=== PATIENT | female | born 1955 | race Caucasian/White ===

== ENCOUNTER → 2016-12-12 | Outpatient (CLI) | payer OTHER ==
[~2016-12-12] MED LIST: ACCL20 PO; ALBU1AER9 INH; ASTN; ATV5 PO; CLR10 PO; DESO0.259 TOP; FLUT0.0529 NAE; FLUT110A INH; FLX10 PO; KETO0.0216 OP; PRLSR20 PO; PSEU60TA80 PO; PXL20 PO; SENN-104 PO; SIMV-150 PO
== END | disposition home or self-care (01) ==
LOC: C.PAPS 10:09
PROVIDERS: ATTEND Obstetrics & Gynecology
DX: Z01.419 Encounter for gynecological examination (general) (routine) without abnormal findings (principal)

== ENCOUNTER → 2017-10-16 | Outpatient (CLI) | payer OTHER ==
--- NOTE | 2017-10-16 15:12 | MAMMOGRAPHY REPORT ---
BILATERAL DIGITAL SCREENING MAMMOGRAM WITH CAD: 10/16/2017 CLINICAL HISTORY: Routine screening. Patient has no complaints. TECHNIQUE: Bilateral CC, MLO and repeat left MLO views were obtained. Current study was also evaluat ed with a Computer Aided Detection (CAD) system. COMPARISON: Comparison is made to exams dated: 12/12/2014 mammogram, 12/06/2013 mammogram, 11/30/2012 m ammogram, 11/18/2011 mammogram, 11/17/2010 mammogram, and 11/16/2009 mammogram - [facility] [address]. BREAST COMPOSITION: There are scattered areas of fibroglandular density in both breasts. FINDINGS: There are a few benign rim calcifications in the breasts. No suspicious mass, architectura l distortion or cluster of suspicious microcalcifications is seen. IMPRESSION: ACR BI-RADS CATEGORY 1: NEGATIVE There is no mammographic evidence of malignancy. A 1 year screening mammogram is recommended. The pa tient will receive written notification of the results. Approximately 10% of breast cancers are not detected with mammography. A negative mammographic report should not delay biopsy if a clinically suggestive mass is present. Letitia Villarreal M.D. ay/:10/16/2017 10:59:41 Hogshead Mat Assembler: Shanda PACHECO(Gabriella)(Ubaldo)(BD), [facility] letter sent: Normal 1/2 BI-RADS Code: ACR BI-RADS Category 1: Negative
== END | disposition home or self-care (01) ==
LOC: C.MAMM 10:25
PROVIDERS: ATTEND Obstetrics & Gynecology
DX: Z12.31 Encounter for screening mammogram for malignant neoplasm of breast (principal)

== ENCOUNTER 2022-05-18 05:15 | Observation (INO) ==
--- NOTE | 2022-05-13 11:50 | Anesthesiology Consultation ---
Date of Service May 13, 2022 Assessment & Plan (1) Encounter for pre-operative examination: Chart Review Chart Review: Acceptable Risk for Surgery (pending preop Covid testing results ) and Patient NOT seen in Pre Admission Testing - Check BSG AM DOS Per nursing assessment 05/13/2022, patient denies any recent travel. No known COVID infection in the past 90 days. Patient is fully vaccinated for COVID. No known Covid positive exposures or Covid related symptoms. Preop Covid testing scheduled 05/16/22= will await results Patient seen by PCP 05/06/2022 = seen for preop evaluation. Had recent vaginal sling procedure done 02/06/2022. No problems with anesthesia. She is able to walk up a flight of stairs without stopping and think she be able to do 2 flights. Physical examinationEKG with normal sinus rhythm. Labs obtained today. Will forward results to [facility] preop. As long as labs are okay she can proceed with surgery as scheduled. Addendum: Labs and EKG reviewed. Patient may proceed with surgery as scheduled. History Surgery Operation Date: 05/18/22 07:00 Proposed Procedures p Left Total Knee Arthroplasty - Librado Dave MD Height/Weight Height: 5 ft Weight: 68.039 kg Allergies Allergy/AdvReac Type Severity Reaction Status Date / Time aspirin Allergy Severe SOB Verified 05/13/22 10:51 NSAIDS (Non-Steroidal Allergy Severe SOB Verified 05/13/22 10:51 Anti-Inflamma iodine Allergy Intermediate rash and Verified 05/13/22 10:53 itching green tea Allergy Mild RASH Verified 05/13/22 10:51 Iodinated Contrast Media Allergy Mild RASH/ITCHIN Verified 05/13/22 10:51 G levofloxacin Allergy Mild ITCHY Verified 05/13/22 10:51 (TOLERATES CIPRO) lutein Allergy Mild RASH/ITCHIN Verified 05/13/22 10:51 G Medications Home Medications Medication Instructions Recorded Confirmed Last Taken albuterol sulfate 90 mcg/actuation 2 puff INHALATION Q6H PRN 06/21/19 05/13/22 Unknown aerosol inhaler azelastine 137 mcg (0.1 %) nasal 2 spray INTRANASAL Q12H 06/21/19 05/13/22 0 06/21/19 spray aerosol cetirizine 10 mg capsule 10 mg PO DAILY PRN 06/21/19 05/13/22 Unknown cholecalciferol (vitamin D3) 125 5,000 unit PO QAM 06/21/19 05/13/22 Unknown mcg (5,000 unit) tablet (Vitamin D3) fluticasone 250 mcg-salmeterol 50 1 inh INHALATION BID 06/21/19 05/13/22 06/21/19 mcg/dose blistr powdr for inhalation (Advair Diskus) hydrocodone 5 mg-acetaminophen 325 1 tab PO Q4H PRN 06/21/19 05/13/22 06/21/19 mg tablet ketotifen fumarate 0.025 % (0.035 1 drp OPHTHALMIC (EYE) Q12H PRN 06/21/19 05/13/22 Unknown %) eye drops (Zaditor) multivitamin 1 tab PO QAM 06/21/19 05/13/22 Unknown zafirlukast 20 mg tablet (Accolate) 20 mg PO BID 06/21/19 05/13/22 06/21/19 conjugated estrogens 0.625 mg/gram 0.625 mg VAGINAL .USE 1 GRAM 08/24/20 Unknown vaginal cream VAGINALLY TWICE WEEKLY #30 g albuterol sulfate 0.63 mg/3 mL 0.63 mg INHALATION Q4H PRN 11/03/21 05/13/22 Unknown solution for nebulization bimatoprost 0.01 % eye drops 1 drp OPB HS 11/03/21 05/13/22 Unknown (Sachin) coQ10 (ubiquinol) 100 mg capsule 100 mg PO QAM 11/03/21 05/13/22 Unknown cyanocobalamin (vitamin B-12) 1,000 mcg PO QAM 11/03/21 05/13/22 Unknown 1,000 mcg capsule duloxetine 60 mg capsule,delayed 60 mg PO QAM 11/03/21 05/13/22 Unknown release famotidine 20 mg tablet (Pepcid) 20 mg PO DAILY PRN 11/03/21 05/13/22 Unknown fexofenadine 180 mg tablet 180 mg PO DAILY PRN 11/03/21 05/13/22 Unknown guaifenesin 1,200 mg tablet, 1,200 mg PO Q12H PRN 11/03/21 05/13/22 Unknown extended release 12 hr (Mucinex) simvastatin 20 mg tablet 20 mg PO HS 11/03/21 05/13/22 Unknown Gabbie Apple Cidar Vinegar 2 tab PO QAM 05/13/22 05/13/22 Unknown Past Medical History Medical History (Updated 05/13/22 @ 11:48 by Bisi Mueller PA-C) Anxiety Asthma Rescue inhaler last used > 3 months ago Chronic shoulder pain Diabetes Prediabetes per patient Diabetes Type II per PCP records Environmental and seasonal allergies GERD (gastroesophageal reflux disease) Controlled, stable per pt Glaucoma High cholesterol Hx of cervical cancer S/P SURGERY AND RADIATION Spinal stenosis Stress bladder incontinence, female Past Family History Family History Aunt Asthma Mother Diabetes Alzheimer disease Father Prostate cancer Other No family history of adverse response to anesthesia Denies family history of Ovarian cancer Breast cancer Colorectal cancer Past Surgical History Surgical History (Updated 05/13/22 @ 11:42 by Bisi Mueller PA-C) H/O total hysterectomy History of appendectomy History of colonoscopy History of lumbar surgery 2014: L3-L5 lumbar decompression and fusion, [facility], Dr Genao History of nasal polypectomy History of repair of rotator cuff + BICEP TENDON REPAIR>RT History of surgery Vaginal sling procedure 02/14/22 per PCP records History of tooth extraction Nausea and vomiting after administration of anesthetic agent Social History Smoking Status: Never smoker Do You Dip or Chew Tobacco: No Hx Alcohol Use: Yes alcohol intake frequency: holidays/special occasions only Hx Substance Use: No substance use type: does not use Lab Results Anesthesia Preop Results Results Anesthesia Widget: PT 10.3 Seconds (9.0-12.0) 05/09/22 PTT 25.2 Seconds (21.0-31.0) 05/09/22 INR 1.0 (0.9-1.1) 05/09/22 Urine Color Yellow 05/09/22 Urine Appearance Clear (Clear) 05/09/22 Urine pH 5.0 (4.5-7.5) 05/09/22 Urine Specific [place] 1.021 (1.000-1.030) 05/09/22 Urine Protein Negative (Negative) 05/09/22 Urine Glucose (UA) Negative (Negative) 05/09/22 Urine Ketones Negative (Negative) 05/09/22 Urine Blood Negative (Negative) 05/09/22 Urine Nitrite Negative (Negative) 05/09/22 Urine Bilirubin Negative (Negative) 05/09/22 Urine Urobilinogen Negative (Negative) 05/09/22 Urine Leukocyte Esterase Negative (Negative) 05/09/22 Blood Type A Positive 05/09/22 Antibody Screen NEGATIVE 05/09/22 Testing Laboratory Results 05/09/22= URINE CULTURE: No growth 05/06/22= WBC: 6.69 H/H: 13.7/41.4 PLATELETS: 318 SODIUM: 140 POTASSIUM: 5.0 CHLORIDE: 100 CO2: 26 BUN: 13 CREATININE: 0.7 GLUCOSE: 113 HGB A1C: 6.4 Electrocardiogram Date: 11/04/21 Findings: + NSR @ (75bpm ) Normal EKG per cardio. Chest X-Ray Date: 05/09/22 Findings: + NAD FINDINGS: Lung volumes are normal. Lungs are clear. There is no pneumothorax or pleural effusion. Cardiac size is normal. Mediastinal contours are normal. There is no evidence for pulmonary edema. Postoperative findings within the spine are partially imaged. Lingular and right middle lobe linear densities reflect scarring or atelectasis.
--- NOTE | 2022-05-13 17:51 | History & Physical Report ---
Date of Service May 13, 2022 Assessment & Plan (1) Left knee DJD: Plan: Postoperative prescriptions for Percocet and Coumadin will be provided at discharge from the hospital. Anticipate discharge to home with home health services. Preoperative lab work, EKG, and chest x-ray have been ordered. She will see PAT for evaluation as well. Medical clearance has been requested from her PCP, Dr. Adams. The patient is aware of the COVID-19 risks associated with surgery. She is currently asymptomatic of any COVID-19 symptoms. She will obtain nasal swab testing 2 days prior to surgery. PDMP was checked and there are no concerning findings. She has a walker. Anticipate that she will do home health postoperatively for 2 weeks and then transition to outpatient PT. Postop followup appointment has been made for 06/02 at 11:00 a.m. for staple removal. History of Present Illness Chief Complaint: Left knee pain Primary Care Provider: Uyen Adams, This 66-year-old female presents for her preoperative history and physical. She is scheduled to undergo a left knee total knee arthroplasty on 05/18/2022. She has had bilateral knee pain for over 5 years. Symptoms were previously worse in her right knee. Over the last 3 months, symptoms have become worse in the left knee. She was previously scheduled for right total knee arthroplasty in 11/2021. This was canceled due to COVID. She now elects to proceed with left total knee arthroplasty. She notes loss of motion. She has tried conservative care measures including cortisone injections, viscosupplementation, activity modification and oral pain medications. These were initially helpful, but has not been providing relief. Pain is worse with weightbearing. It is affecting her ADLs. She denies any numbness or tingling. Preoperative imaging has been obtained. Allergies Allergy/AdvReac Type Severity Reaction Status Date / Time aspirin Allergy Severe SOB Verified 05/13/22 10:51 NSAIDS (Non-Steroidal Allergy Severe SOB Verified 05/13/22 10:51 Anti-Inflamma iodine Allergy Intermediate rash and Verified 05/13/22 10:53 itching green tea Allergy Mild RASH Verified 05/13/22 10:51 Iodinated Contrast Media Allergy Mild RASH/ITCHIN Verified 05/13/22 10:51 G levofloxacin Allergy Mild ITCHY Verified 05/13/22 10:51 (TOLERATES CIPRO) lutein Allergy Mild RASH/ITCHIN Verified 05/13/22 10:51 G Home Medications Medication Instructions Recorded Confirmed Type albuterol sulfate 90 mcg/actuation 2 puff INHALATION Q6H PRN 06/21/19 05/13/22 History aerosol inhaler azelastine 137 mcg (0.1 %) nasal 2 spray INTRANASAL Q12H 06/21/19 05/13/22 History spray aerosol cetirizine 10 mg capsule 10 mg PO DAILY PRN 06/21/19 05/13/22 History cholecalciferol (vitamin D3) 125 5,000 unit PO QAM 06/21/19 05/13/22 History mcg (5,000 unit) tablet (Vitamin D3) fluticasone 250 mcg-salmeterol 50 1 inh INHALATION BID 06/21/19 05/13/22 History mcg/dose blistr powdr for inhalation (Advair Diskus) hydrocodone 5 mg-acetaminophen 325 1 tab PO Q4H PRN 06/21/19 05/13/22 History mg tablet ketotifen fumarate 0.025 % (0.035 1 drp OPHTHALMIC (EYE) Q12H PRN 06/21/19 05/13/22 History %) eye drops (Zaditor) multivitamin 1 tab PO QAM 06/21/19 05/13/22 History zafirlukast 20 mg tablet (Accolate) 20 mg PO BID 06/21/19 05/13/22 History conjugated estrogens 0.625 mg/gram 0.625 mg VAGINAL .USE 1 GRAM 08/24/20 05/13/22 Rx vaginal cream VAGINALLY TWICE WEEKLY #30 g albuterol sulfate 0.63 mg/3 mL 0.63 mg INHALATION Q4H PRN 11/03/21 05/13/22 History solution for nebulization bimatoprost 0.01 % eye drops 1 drp OPB HS 11/03/21 05/13/22 History (Sachin) coQ10 (ubiquinol) 100 mg capsule 100 mg PO QAM 11/03/21 05/13/22 History cyanocobalamin (vitamin B-12) 1,000 mcg PO QAM 11/03/21 05/13/22 History 1,000 mcg capsule duloxetine 60 mg capsule,delayed 60 mg PO QAM 11/03/21 05/13/22 History release famotidine 20 mg tablet (Pepcid) 20 mg PO DAILY PRN 11/03/21 05/13/22 History fexofenadine 180 mg tablet 180 mg PO DAILY PRN 11/03/21 05/13/22 History guaifenesin 1,200 mg tablet, 1,200 mg PO Q12H PRN 11/03/21 05/13/22 History extended release 12 hr (Mucinex) simvastatin 20 mg tablet 20 mg PO HS 11/03/21 05/13/22 History Gabbie Apple Cidar Vinegar 2 tab PO QAM 05/13/22 05/13/22 History Past Med/Surg History Medical History Anxiety Asthma Rescue inhaler last used > 3 months ago Chronic shoulder pain Diabetes Prediabetes per patient Diabetes Type II per PCP records Environmental and seasonal allergies GERD (gastroesophageal reflux disease) Controlled, stable per pt Glaucoma High cholesterol Hx of cervical cancer S/P SURGERY AND RADIATION Spinal stenosis Stress bladder incontinence, female Surgical History H/O total hysterectomy History of appendectomy History of colonoscopy History of lumbar surgery 2014: L3-L5 lumbar decompression and fusion, [facility], Dr Genao History of nasal polypectomy History of repair of rotator cuff + BICEP TENDON REPAIR>RT History of surgery Vaginal sling procedure 02/14/22 per PCP records History of tooth extraction Nausea and vomiting after administration of anesthetic agent Family History Aunt Asthma Mother Diabetes Alzheimer disease Father Prostate cancer Other No family history of adverse response to anesthesia Denies family history of Ovarian cancer Breast cancer Colorectal cancer Social History Smoking Status: Never smoker Second Hand Exposure: Yes ( A CHILD); Hx Alcohol Use: Yes Hx Substance Use: No Preferred Language: Haitian Communication Ability: Effective Development Technician Required: No Beliefs That Will Affect Care: None Current Living Situation: Spouse current occupational status: retired Feels Safe at Home: Yes Assistive Devices: Glasses and Nebulizer Review of Systems Review of Systems: All systems reviewed & are unremarkable except as noted in HPI & below A total of 10 systems were reviewed. Physical Exam Physical Exam: Vitals: Height 153 cm, weight 69 kilograms, BMI 29.5, temperature 36.5, BP 140/60, pulse 75, O2 sat 99% on room air. General: Well-developed, well-nourished, elderly white female in no acute distress. Sitting in a chair. Alert and oriented. Skin: Warm and dry with good turgor. No rashes or lesions. No ecchymosis or erythema. No intraarticular effusion. HEENT: Normocephalic, atraumatic. Eyes: PERRLA, EOMI. Nares and oropharynx exams deferred due to COVID precautions. Heart: RRR. No MGR. Lungs: Clear to auscultation bilaterally. No crackles, rhonchi or wheezing. Good air movement. Abdomen: Mildly obese. Bowel sounds present x4. Soft, nontender. No organomegaly. No masses. Musculoskeletal: Left knee evaluation reveals obvious arthritic changes. No deformity. Lacks about 40 degrees of terminal extension. Flexion to 100 degrees. Strength is 5/5 with fair quad tone. Stable collateral ligaments. No defect in the patellar tendon or quadriceps tendon. There is focal pain with palpation over the medial joint line. She has peripatellar discomfort as well. No pain laterally. Ambulates today with a slight limp. No pain with palpation over her lower leg. Motor function of the ankle is intact and unremarkable. Neurologic: Gross sensation is intact across the right leg by soft touch. Peripheral pulses are 2+. Results & Data Results & Data ([facility]) Diagnostic Findings Radiographic imaging previously obtained shows end-stage DJD of the left knee. Periarticular osteophytes, subchondral sclerosis, and joint space narrowing are all present. Code Status & VTE Plan VTE Prophylaxis Plan VTE Prophylaxis will be ordered: Yes
[2022-05-18] MEDS ORDERED: ROPIVACAINE 0.5% HCL/PF 150 MG, BUPIVACAINE 0.75% MPF 20 ML, EPINEPHrine 0.15 MG, dexAM... INFIL SCH (06:00)
[2022-05-18] MEDS ORDERED: ceFAZolin 2000MG 2,000 MG/15 ML SYR IV SCH (06:00)
[2022-05-18] MEDS ORDERED: TRANEXAMIC ACID 1,000 MG **IV Pre-op IV SCH (06:00)
[2022-05-18] MEDS ORDERED: LR 500ML BOLUS, THEN 15ML/HR IV SCH (06:00)
[2022-05-18] MEDS ORDERED: LR 60ML/HR IV SCH (06:00)
--- NOTE | 2022-05-18 06:15 | History & Physical Bridge Note ---
Date of Service May 18, 2022 History & Physical Bridge Note I have examined the patient, reviewed the History & Physical and in the interval since the performance of the History & Physical I have noted the following changes of clinical significance: consent obtained/site verified/covid screen negative.no changes noted
[2022-05-18] MEDS ORDERED: BUPIVACAINE 0.5 % 5 MG/1 ML PF 10ML VIAL ONE (06:31)
[2022-05-18] MEDS ORDERED: ORTHO JOINT ANESTHETIC ONE (06:31)
[2022-05-18] MEDS ORDERED: EPINEPHrine INJ 1 MG/ML AMP ONE (06:31)
[2022-05-18] MEDS ORDERED: ROPIVACAINE 0.5% 5 MG/ML 30 ML VIAL ONE (06:31)
[2022-05-18] MEDS ORDERED: fentaNYL citrate 100 MCG/2 ML VIAL ONE (06:46)
[2022-05-18] MEDS ORDERED: MIDAZOLAM HCL 1 MG/ML 2ML VIAL ONE (06:46)
[2022-05-18] MEDS ORDERED: PROPOFOL IV EMULSION 10 MG/ML 20 ML VIAL IV ONE (07:52)
[2022-05-18] MEDS ORDERED: LIDOCAINE 2% 2 ML VIAL/AMP(20MG/ML) INFIL ONE (07:52)
[2022-05-18] MEDS ORDERED: ONDANSETRON INJ 2 MG/ML 2 ML VIAL ONE (07:53)
--- NOTE | 2022-05-18 09:00 | Post Operative Brief Note ---
Immediate Post Op Note v1 Date of Surgery May 18, 2022 Pre & Post Diagnosis Operation Date: 05/18/22 07:00 Pre-Op Diagnosis: Degenerative Joint Disease Left Knee Post-Op Diagnosis: Degenerative Joint Disease Left Knee I identified the patient and participated in the time-out.: Yes Procedure Operation Date: 05/18/22 07:00 Actual Procedures p Left Total Knee Arthroplasty, Cemented(Left) - Librado Dave MD Surgeon Librado Dave MD Tool Mechanic Carolina/Mary/Carlos- Estimated Blood Loss 50 Findings Consistent with Post-Op Diagnosis
--- NOTE | 2022-05-18 09:11 | Operative Report ---
Post Operative Report Pre & Post Diagnosis Operation Date: 05/18/22 07:00 Pre-Op Diagnosis: Degenerative Joint Disease Left Knee Post-Op Diagnosis: Degenerative Joint Disease Left Knee I identified the patient and participated in the time-out.: Yes Procedure Operation Date: 05/18/22 07:00 Actual Procedures p Left Total Knee Arthroplasty, Cemented(Left) - Librado Dave MD Surgeon PK Dave MD Spoke Maker Carolina/Mary/Carlos- Estimated Blood Loss 50 Findings Consistent with Post-Op Diagnosis see operative report Specimens see operative report Drains none Disposition Accompanied Patient To Recovery: Yes Indications This 66-year-old female presented to the office with complaints of persisting left knee pain. She had tried conservative care measures without improvement. She elected to proceed with surgical intervention after being educated about potential risks and outcomes. Preoperative imaging was obtained. Description of Procedure Patient was administered her spinal anesthetic and then taken the operating room where she was given sedation. She was prepped and draped in the usual sterile fashion. Please see Dr. Dave's operative report for specifics of the procedure. I was present for the entire case from initial patient positioning through final wound closure. Assistance was provided in tissue retraction, he mostasis, trial implant placement, final implant placement, and final wound closure. Patient was taken to the recovery room in satisfactory condition. I attest to the content of the Intraoperative Record and any orders documented therein. Any exceptions are noted below.
--- NOTE | 2022-05-18 09:13 | Operative Report ---
Post Operative Report Pre & Post Diagnosis Operation Date: 05/18/22 07:00 Pre-Op Diagnosis: Degenerative Joint Disease Left Knee Post-Op Diagnosis: Degenerative Joint Disease Left Knee I identified the patient and participated in the time-out.: Yes Procedure Operation Date: 05/18/22 07:00 Actual Procedures p Left Total Knee Arthroplasty, Cemented(Left) - Librado Dave MD Surgeon Ron Wayne MD Customer Service Operator Carolina/Mary/Carlos- Estimated Blood Loss 50 Findings Consistent with Post-Op Diagnosis Consistent with post op diagnosis. Specimens No specimens. Description of Procedure I participated in prepping dressing and assisted Dr. Dave during the procedure. Please see Dr. Dave note I attest to the content of the Intraoperative Record and any orders documented therein. Any exceptions are noted below.
--- NOTE | 2022-05-18 09:30 | Operative Report (OR) ---
DATE OF PROCEDURE: 05/18/2022. SURGEON: Librado Dave MD. COMMERCIAL GREEN BUILDING DESIGNER: Jie Figueroa MD. SECOND COMMERCIAL GREEN BUILDING DESIGNER: Surya Hernandez PA-C. THIRD COMMERCIAL GREEN BUILDING DESIGNER: Carlos Plata. PREOPERATIVE DIAGNOSES: Osteoarthritis, left knee with flexion varus deformity. POSTOPERATIVE DIAGNOSES: Osteoarthritis, left knee with flexion varus deformity. OPERATION PERFORMED: Cemented left total knee replacement. SUMMARY OF IMPLANTS: Size 2 left femur, size 2.5 mobile bearing tray, size 2 x 12.5 insert, oval dome 3 peg patella, three bags of Palacos G cement. PERIOPERATIVE SITUATION: Medically cleared female with intractable knee pain bilaterally, left is worse than right. Wants to proceed with left total knee replacement. She understands the risks and consequences. DESCRIPTION OF PROCEDURE: The patient was appropriately identified, site verified, consent verified. Antibiotics were confirmed as being given. The left lower extremity was prepped and draped in routine fashion. The tourniquet was inflated to 275 mmHg after exsanguination of the limb with a rubber Esmarch bandage for a total of roughly 50 minutes. Midline exposure was utilized. Parapatellar arthrotomy performed. Synovectomy completed. Osteophytes resected. Distal femur entered. Cruciates resected. Tibia was subluxated, menisci resected. Femur was measured all over the place between a 2 and a 3, so was measured 2.5 and cut 2.5, the tibia was then cut 4 mm, extension gap was excellent. The 2.5 block was then placed and the cuts were made. The 2.5 trial fit well, but had some slight increased anterior size. Once the tibia was then broached and reamed the flexion gap was also checked as well and that revealed perhaps some slight tightness, but judgment call was made and stuck with 2.5. Once the box cut was finally made and the 2.5 trial fit well and the tibia spacer seated with a 10 mm spacer. Extension was excellent. Flexion was excellent. The patella tracked slightly laterally. Lateral release was performed and that allowed the patella to track very well. Patella was then resected leaving 14 mm and a 35 button seated, everything tracked well. Once everything was irrigated out with Betadine and Pulsavac, the permanent cemented into position tibia, femur, and patella in that order. At 14 minutes, it was noticed that the flexion gap was still a little bit tight and it looked like there was some slight liftoff on the femur, so the femur was revised to a size 2. Once that was carried out, the flexion gap was more appropriate. The wound was then copiously irrigated and the permanent left femur then cemented into position. After 14 minutes, minor cement removal was required. The wound was irrigated. A trial spacer was seated and between a 10 and a 12.5, the 12.5 gave a little bit more mid range stability with no loss of flexion. There was no tightness in extension or flexion. The trial spacer was removed. The wound was irrigated one final time with Pulsavac Betadine and then the permanent liner seated, knee reduced and then closed with #2 Vicryl, 2-0 Vicryl and stainless steel clips. Appropriate dressing applied. The patient was transferred to recovery room in satisfactory condition, having tolerated the procedure well. SUMMARY OF IMPLANTS: Size 2 left femur, size 2.5 mobile bearing tray, size 2 x 12.5 insert, oval dome 3-peg patella, size 35 and then removed a 2.5 implant. ESTIMATED BLOOD LOSS: Roughly 50 mL. CRYSTALLOID: Per anesthesia. Bone pathology pending. DVT prophylaxis per protocol. Job ID: [id number] [facility]
[2022-05-18] MEDS ORDERED: PROMETHAZINE HCL 12.5 MG in SODIUM CHLORIDE 0.9% 50 ML IV PRN (09:34)
[2022-05-18] MEDS ORDERED: ONDANSETRON INJ 2 MG/ML 2 ML VIAL IV PRN ×2 (09:34→10:27)
[2022-05-18] MEDS ORDERED: FLUMAZENIL 0.1 MG/1 ML 10 ML VIAL IV PRN (09:34)
[2022-05-18] MEDS ORDERED: ATROPINE SULFATE 0.1 MG/ML 10ML SYR IV PRN (09:34)
[2022-05-18] MEDS ORDERED: NALOXONE HCL 0.4 MG/1 ML VIAL/CARP IV PRN ×2 (09:34→10:27)
[2022-05-18] MEDS ORDERED: ePHEDrine sulfate 50 MG/ML AMP IV PRN (09:34)
[2022-05-18] MEDS ORDERED: fentaNYL citrate 100 MCG/2 ML VIAL IV PRN (09:34)
--- NOTE | 2022-05-18 09:58 | XRay Report ---
XR knee LT 1 or 2V routine CLINICAL HISTORY: S/P L TKA COMPARISON: Left knee radiographs August 02, 2021. FINDINGS: Alignment of the total left knee arthroplasty is anatomic. Skin sailaja are present. There are no unexpected radiopaque foreign bodies. An ossific density along the medial femoral condyle may reflect expected postsurgical change. IMPRESSION: Status post total left knee arthroplasty. ACT 112: Negative or not required by law. Electronically signed by: Ulises Cunningham M.D. 05/18/2022 9:56 AM
--- NOTE | 2022-05-18 10:17 | Anesthesiology Progress Note ---
Date of Service May 18, 2022 Anesthesia Post Procedure Vital Signs Vital Signs: Temp Pulse Pulse Resp BP Pulse Ox 05/18/22 10:10 61 12 142/61 H 100 05/18/22 10:00 65 12 111/63 100 05/18/22 09:50 66 14 107/47 L 98 05/18/22 09:40 68 16 97/56 L 100 05/18/22 09:30 68 10 L 119/61 98 05/18/22 09:20 71 7 L 122/56 L 98 05/18/22 09:10 36.4 C L 76 17 115/67 98 05/18/22 05:41 36.7 C 65 20 141/66 H 99 Transfer of Care Handoff Completed per policy Notes Mental Status: alert / awake / arousable Patient Amnestic to Procedure: Yes Nausea / Vomiting: adequately controlled Pain: adequately controlled Airway Patency, RR, SpO2: stable & adequate BP & HR: stable & adequate Hydration State: stable & adequate Neuraxial Anesthesia: was administered and sensory block is resolving Anesthetic Complications: no major complications apparent
[2022-05-18] MEDS ORDERED: bisacodyL 10 MG SUPP PR PRN (10:27)
[2022-05-18] MEDS ORDERED: FEXOFENADINE HCL 180 MG TAB PO PRN (10:27)
[2022-05-18] MEDS ORDERED: ALBUTEROL HFA 8 GM INHALER INH PRN (10:27)
[2022-05-18] MEDS ORDERED: MAGNESIUM HYDROXIDE SUSP 30 ML UDC PO PRN (10:27)
[2022-05-18] MEDS ORDERED: SODIUM CHLORIDE 0.9% 1000ML 1,000 ML IV SCH (10:27)
[2022-05-18] MEDS ORDERED: diphenhydrAMINE 50 MG/ML VIAL IV PRN (10:27)
[2022-05-18] MEDS ORDERED: ALUMINUM/MAGNESIUM SUSP 30 ML UDC PO PRN (10:27)
[2022-05-18] MEDS ORDERED: METOCLOPRAMIDE HCL INJ 5 MG/ML 2 ML VIAL IV PRN (10:27)
[2022-05-18] MEDS ORDERED: CETERIZINE PO PRN (10:47)
[2022-05-18] MEDS ORDERED: ALBUTEROL 0.083% NEBU SOLN 3 ML VIAL INH PRN (10:49)
[2022-05-18] MEDS ORDERED: VANCOMYCIN HCL 1,000 MG in SODIUM CHLORIDE 0.9% 250 ML IV ONE (11:00)
--- NOTE | 2022-05-18 11:29 | Progress Notes ---
DATE OF SERVICE: 05/18/2022 Postop check status post left total knee replacement. The patient is doing well and has minimal discomfort. Block is still in place, has a trace function on the right, still is only log rolling on the left. Wound dressing clean, dry and intact. Postop x-rays look excellent. The ossific density is related to the release of the medial structures , it is a little fragment of bone on the anteromedial capsule. ASSESSMENT: Doing well status post left total knee replacement. Continue with care pathway. Discha rge home tomorrow if she does well overnight. (dictated, not read) Job ID: [id number]
--- NOTE | 2022-05-18 11:56 | Discharge Summary (DS) ---
DATE OF ADMISSION: 05/18/2022. DATE OF POTENTIAL DISCHARGE: 05/19/2022. CHIEF COMPLAINT: Left knee pain. HISTORY OF PRESENT ILLNESS: The patient underwent elective left total knee replacement for severe va chau flexion deformity of her left knee. Hospital course has been uneventful to date. Postop x-rays look excellent. PREADMISSION MEDICATIONS: Include albuterol, intranasal azelastine spray, cetirizine, vitamin D, flu ticasone, hydrocodone p.r.n., ophthalmic eye drops with ketotifen fumarate, zafirlukast b.i.d., albut adelita, Lumigan (bimatoprost), CoQ10, vitamin B, duloxetine, famotidine, fexofenadine, guanfacine, simv astatin. ALLERGIES: INCLUDE ASPIRIN, NONSTEROIDALS, IODINE, GREEN TEA, LEVOFLOXACIN, AND LUTEIN. PAST MEDICAL/PAST SURGICAL HISTORY: Remarkable for anxiety, asthma, rescue inhaler, chronic shoulder pain, diabetes, environmental and seasonal allergies, GERD, glaucoma, high cholesterol, history of c ervical cancer, spinal stenosis, stress incontinence, history of hysterectomy, appendectomy, colonosc opy, lumbar surgery, nasal polyps, rotator cuff repair, vaginal sling, tooth extraction. FAMILY HISTORY: Remarkable for asthma, diabetes, Alzheimer's, prostate cancer. SOCIAL HISTORY: Reveals she does not smoke. She is . She is retired. Wears glasses. Feels safe at home. REVIEW OF SYSTEMS: Reveals no chest pain, shortness of breath, fever, chills, nausea, vomiting or he adache. ASSESSMENT: Status post left total knee replacement, doing well. Discharge home tomorrow if she armendariz s well overnight. Job ID: [id number]
[2022-05-18] MEDS: ACETAMINOPHEN 500 MG TAB PO SCH ×2 (13:52→21:01)
[2022-05-18] MEDS: AZELASTINE HCL 0.1% NASAL 200 SPRAYS/27,400 MCG BTL SCH ×2 (13:52→22:29)
[2022-05-18] MEDS ORDERED: ORTHO WARFARIN NOMOGRAM SCH (14:00)
[2022-05-18] MEDS: oxyCODONE HCL IR 5 MG TAB (IMMEDIATE RELEASE) PO PRN ×2 (14:48→19:54)
[2022-05-18] MEDS ORDERED: TRANEXAMIC ACID / 0.7% NACL 1,000 MG/100 ML BAG IV SCH (15:00)
--- NOTE | 2022-05-18 15:23 | Progress Notes ---
SUBJECTIVE: Postop check, p.m. visit, doing well and has been up to the bathroom, was bearing weight on her leg. Denies any chest pain, shortness of breath, fever, chills, nausea, vomiting or headache . Pain is well managed. She has no real issues. Wound dressing clean, dry and intact. Neurovascul ar check, femoral sciatic nerve is normal. ASSESSMENT: Doing well. Continue care pathway, saline lock IV and prepare for discharge tomorrow. Job ID: [id number]
[2022-05-18] MEDS ORDERED: WARFARIN SOD 5 MG TAB PO ONE (15:30)
[2022-05-18] MEDS: ASCORBIC ACID 500 MG TAB PO SCH (16:05)
[2022-05-18] MEDS: ceFAZolin 2000MG 2,000 MG/15 ML SYR IV SCH ×2 (16:05→22:29)
[2022-05-18] MEDS: FERROUS GLUCONATE 324 MG TAB PO SCH (16:06)
[2022-05-18] MEDS ORDERED: BIMATOPROST 0.01% OP SOLN 2.5 ML BTL OPB SCH (21:00)
[2022-05-18] MEDS ORDERED: SIMVASTATIN 20 MG TAB PO SCH (21:00)
[2022-05-18] MEDS: DOCUSATE SODIUM 100 MG CAP PO SCH (21:00)
[2022-05-18] MEDS ORDERED: SENNA 8.6 MG TAB PO SCH (21:00)
[2022-05-18] MEDS: HYDROmorphone INJ 0.5 MG/0.5 ML SYR IV PRN (22:38)
[2022-05-19] MEDS: oxyCODONE HCL IR 5 MG TAB (IMMEDIATE RELEASE) PO PRN ×4 (00:23→13:20)
[2022-05-19] MEDS: HYDROmorphone INJ 0.5 MG/0.5 ML SYR IV PRN (03:22)
[2022-05-19] MEDS: ACETAMINOPHEN 500 MG TAB PO SCH ×2 (05:13→13:20)
[2022-05-19 06:24] LABS: Hematocrit (blood only) 34.8 % (37-47); Hemoglobin 11.5 g/dL (12.0-16.0); Mean Corpuscular Hemoglobin 30.7 pg (25-34); Mean Corpuscular Volume 92.8 fL (80-100); Mean Platelet Volume 9.3 fL (7.4-10.4); Platelet Count 275 K/uL (130-400); RDW Coefficient of Variation 13.3 % (11.5-14.5); RDW Standard Deviation 45.3 fL (36.4-46.3); Red Blood Count 3.75 M/uL (4.2-5.4); White Blood Count 10.14 K/uL (4.8-10.8)
[2022-05-19 06:47] LABS: BUN Creatinine Ratio 17.1 (10-20); Calcium 8.6 mg/dl (8.5-10.1); Creatinine Clr Calc Pharmacy 62.6 ml/min; Est GFR (African American) 94.7 ml/min; Est GFR (Non-African American) 81.7 ml/min; Potassium 4.2 mmol/L (3.5-5.1)
[2022-05-19 07:37] LABS: INR 1.1 (0.9-1.1); Prothrombin Time 11.8 Seconds (9.0-12.0)
[2022-05-19] MEDS ORDERED: dexAMETHasone 10 MG in SYRINGE 0 ML IV SCH (08:00)
--- NOTE | 2022-05-19 08:23 | Progress Notes ---
SUBJECTIVE: Postop check on the patient, status post left total knee replacement. The patient is do ing well. Has no major issues. Denies chest pain, shortness of breath, fever, chills, nausea, vomit ing or headache. Wound dressing clean, dry, and intact. Neurovascular check, femoral sciatic nerve is normal. Can do a straight leg raise. Ambulates to the bathroom. No issues. LABORATORY WORK: This morning reveals hematocrit stable at 35. INR is pending. Electrolytes look g ood. Glucose well managed. Calves nontender. ASSESSMENT AND PLAN: Doing well status post left total knee replacement. We will discharge her home today after PT/OT. Coumadin dose per nomogram. If less than 1.4, discharge on 4 mg. If 1.[address], discharge on 2 mg. Job ID: [id number]
[2022-05-19] MEDS: FERROUS GLUCONATE 324 MG TAB PO SCH (08:48)
[2022-05-19] MEDS: DOCUSATE SODIUM 100 MG CAP PO SCH (08:48)
[2022-05-19] MEDS: AZELASTINE HCL 0.1% NASAL 200 SPRAYS/27,400 MCG BTL SCH (08:48)
[2022-05-19] MEDS: ASCORBIC ACID 500 MG TAB PO SCH (08:48)
[2022-05-19] MEDS ORDERED: WARFARIN SOD 5 MG TAB PO SCH (09:00)
[2022-05-19] MEDS ORDERED: MULTIVITAMIN TAB PO SCH (09:00)
[2022-05-19] MEDS ORDERED: DULoxetine HCL 60 MG CAP PO SCH (09:00)
[2022-05-19] MEDS ORDERED: FLUTICASONE/VILANTEROL 200/25MCG 14 PUFFS/INHALER INH SCH (09:00)
--- NOTE | 2022-05-19 12:22 | Orthopedic Progress Note ---
Date of Service May 19, 2022 Assessment & Plan (1) S/P total knee replacement using cement: Plan: Patient's dressing was changed today by me. New pressure dressing was applied. JOEL hose were also applied. Discharge to home today after PT/OT. Use the knee immobilizer today and tomorrow, and discontinue its use on Monday morning. Coumadin 4 mg daily over the weekend. Have her blood checked on Monday. Written discharge instructions were provided. Prescriptions for Percocet and Coumadin have been sent to her pharmacy. Follow-up in the office in 2 weeks as scheduled for staple removal. Admission and Anticipated Discharge Date Admission Date: May 18, 2022 Subjective Patient is seen in her room this morning. She states she developed knee pain around 2 AM. It has been controlled with Percocet. She has been taking it regularly. Her current pain is tolerable. She has been out of bed. She was able to eat breakfast. She currently denies any chest pain, shortness of breath, nausea, vomiting, diarrhea, or abdominal pain. Review of Systems Review of Systems: Unchanged from yesterday. Physical Exam Physical Exam: General: Well-developed, well-nourished, elderly white female, in no acute distress. Sitting in a chair. Alert and oriented. Obvious discomfort. Postsurgical dressings are in place. Skin: Warm dry with good turgor. No rashes or lesions. Postsurgical dressings on the left knee are dry. Upon removal, there is scant dried blood on her inner dressings. No active bleeding from her wound. Dharmesh are intact. Wound edges are well approximated. Expected postoperative edema. No ecchymosis, warmth, or erythema. Musculoskeletal: Patient has full passive terminal extension. Actively she lacks about 10 degrees. Active flexion to around 70 degrees. She is able to perform straight leg raise. Intact motor function of her ankle. Neurologic: Gross sensation is intact across both lower extremities by soft touch. Peripheral pulses are 2+. Results & Data ([facility]) Vital Signs (Past 12 Hours) Vital Signs Temp Pulse Pulse Resp BP Pulse Ox 05/19/22 09:28 36.5 C 61 63 18 156/67 H 97 05/19/22 07:35 36.5 C 63 18 156/67 H 97 05/19/22 03:29 36.4 C L 71 18 136/70 96 Laboratory Results H&H obtained today is 11.5 and 34.8. WBC is 10.14. INR 1.1. PRP is unremarkable.
== END 2022-05-19 14:30 | disposition home health service (06) ==
LOC: 3E 05:15 → ASU 05:15

== ENCOUNTER 2025-03-07 06:36 | Inpatient (IN) ==
--- NOTE | 2024-12-25 14:13 | PAT Medication Instructions ---
Medication Instructions Date of Service December 25, 2024 Home Medications albuterol sulfate 90 mcg/actuation aerosol inhaler 2 puff inhalation Q6H PRN Shortness Of Breath Or Wheezing azelastine 137 mcg (0.1 %) nasal spray 2 spray intranasal Q12H cetirizine 10 mg capsule 10 mg PO DAILY PRN Allergy Symptoms cholecalciferol (vitamin D3) 125 mcg (5,000 unit) tablet (Vitamin D3) 5,000 unit PO QPM fluticasone 250 mcg-salmeterol 50 mcg/dose blistr powdr for inhalation (Advair Diskus) 1 inh inhalation BID ketotifen fumarate 0.025 % (0.035 %) eye drops (Zaditor) 1 drp ophthalmic (eye) Q12H PRN Itching multivitamin 1 tab PO QAM zafirlukast 20 mg tablet (Accolate) 20 mg PO BID albuterol sulfate 0.63 mg/3 mL solution for nebulization 0.63 mg inhalation Q4H PRN SHORT OF BREATH bimatoprost 0.01 % eye drops (Lumigan) 1 drp OPB HS cyanocobalamin (vitamin B-12) 1,000 mcg capsule 1,000 mcg PO QAM duloxetine 60 mg capsule,delayed release 60 mg PO QAM famotidine 20 mg tablet (Pepcid) 20 mg PO DAILY PRN Heartburn fexofenadine 180 mg tablet 180 mg PO DAILY PRN ALLERGY RELIEF guaifenesin 1,200 mg tablet, extended release 12 hr (Mucinex) 1,200 mg PO Q12H PRN Cough Gabibe Apple Cidar Vinegar 2 tab PO QAM atorvastatin 10 mg tablet 10 mg PO QPM acetaminophen 650 mg tablet,extended release 650 mg PO Q8H PRN prn calcium 600 mg capsule 1,200 mg PO QPM coenzyme Q10 200 mg capsule (Co Q-10) 200 mg PO QAM conjugated estrogens 0.625 mg/gram vaginal cream 0.625 mg vaginal UD glucosamine sulf dipot chlr,msm,chond 550 mg-C 30 mg-concepción 1 mg capsule (Glucosamine Chondroitin) 1 cap PO DAILY hydrocodone 5 mg-acetaminophen 325 mg tablet 1 tab PO Q8H PRN prn krill oil 500 mg capsule 500 mg PO DAILY lactobacillus combination no.4 3 billion cell capsule (Probiotic) 3,000 mmu cells PO QAM levocetirizine 5 mg tablet (Xyzal) 5 mg PO DAILY PRN prn turmeric 400 mg capsule 400 mg PO QAM zinc 50 mg capsule 50 mg PO QPM MEDICATION INSTRUCTIONS: Continue as directed albuterol sulfate 90 mcg/actuation aerosol inhaler 2 puff inhalation Q6H PRN Shortness Of Breath Or Wheezing (use if needed; BRING TO HOSPITAL) conjugated estrogens 0.625 mg/gram vaginal cream 0.625 mg vaginal UD (do not use after bathing prior to surgery) azelastine 137 mcg (0.1 %) nasal spray 2 spray intranasal Q12H albuterol sulfate 0.63 mg/3 mL solution for nebulization 0.63 mg inhalation Q4H PRN SHORT OF BREATH bimatoprost 0.01 % eye drops (Lumigan) 1 drp OPB HS ketotifen fumarate 0.025 % (0.035 %) eye drops (Zaditor) 1 drp ophthalmic (eye) Q12H PRN Itching fluticasone 250 mcg-salmeterol 50 mcg/dose blistr powdr for inhalation (Advair Diskus) 1 inh inhalation BID STOP taking 2 weeks before surgery Gabbie Apple Cidar Vinegar 2 tab PO QAM coenzyme Q10 200 mg capsule (Co Q-10) 200 mg PO QAM krill oil 500 mg capsule 500 mg PO DAILY turmeric 400 mg capsule 400 mg PO QAM glucosamine sulf dipot chlr,msm,chond 550 mg-C 30 mg-concepción 1 mg capsule (Glucosamine Chondroitin) 1 cap PO DAILY DO NOT take the morning of surgery lactobacillus combination no.4 3 billion cell capsule (Probiotic) 3,000 mmu cells PO QAM cetirizine 10 mg capsule 10 mg PO DAILY PRN Allergy Symptoms multivitamin 1 tab PO QAM levocetirizine 5 mg tablet (Xyzal) 5 mg PO DAILY PRN prn cyanocobalamin (vitamin B-12) 1,000 mcg capsule 1,000 mcg PO QAM fexofenadine 180 mg tablet 180 mg PO DAILY PRN ALLERGY RELIEF guaifenesin 1,200 mg tablet, extended release 12 hr (Mucinex) 1,200 mg PO Q12H PRN Cough Take morning of surgery With a small sip of water, OTHERWISE NOTHING TO EAT OR DRINK AFTER MIDNIGHT: hydrocodone 5 mg-acetaminophen 325 mg tablet 1 tab PO Q8H PRN prn zafirlukast 20 mg tablet (Accolate) 20 mg PO BID acetaminophen 650 mg tablet,extended release 650 mg PO Q8H PRN prn duloxetine 60 mg capsule,delayed release 60 mg PO QAM famotidine 20 mg tablet (Pepcid) 20 mg PO DAILY PRN Heartburn Take evening before surgery hydrocodone 5 mg-acetaminophen 325 mg tablet 1 tab PO Q8H PRN prn zafirlukast 20 mg tablet (Accolate) 20 mg PO BID calcium 600 mg capsule 1,200 mg PO QPM zinc 50 mg capsule 50 mg PO QPM atorvastatin 10 mg tablet 10 mg PO QPM cholecalciferol (vitamin D3) 125 mcg (5,000 unit) tablet (Vitamin D3) 5,000 unit PO QPM acetaminophen 650 mg tablet,extended release 650 mg PO Q8H PRN prn guaifenesin 1,200 mg tablet, extended release 12 hr (Mucinex) 1,200 mg PO Q12H PRN Cough Other Notes If you have any questions please call us at [phone] or [phone] or [phone] or [phone]
--- NOTE | 2025-01-06 09:12 | Anesthesiology Consultation ---
Date of Service January 06, 2025 Assessment & Plan (1) Encounter for pre-operative examination: - surgeon ordered PCP clearance 01/10/25, SERGEY Islas. - chlorhexidine allergy: patient recalled allergy during PAT visit. It was entered into EMR and chlorhexidine wipes were NOT provided. Surgeon's office made aware. Chart Review Chart Review: Pending: Refer to Additional Notes / Consult section and Patient seen in Pre Admission Testing Teaching & Discussion Pre-Anesthesia Teaching/Discussion Notes: Instructed NPO after midnight before surgery, except medications with 15 cc of water. Medication instructions provided according to the PAT guidelines. History Surgery Operation Date: 01/20/25 07:45 Proposed Procedures p C5 Corpectomy, C4-C6 Anterior Cervical Discectomy and Fusion, with Spinal Cord Monitoring - Gerard Genao DO Height/Weight Height: 5 ft Weight: 61.2 kg Allergies Allergy/AdvReac Type Severity Reaction Status Date / Time aspirin Allergy Severe shortness Verified 01/06/25 09:27 of breath NSAIDS (Non-Steroidal Allergy Severe severe Verified 01/06/25 09:27 Anti-Inflamma shortness of breath chlorhexidine Allergy Intermediate pruritus, Verified 01/06/25 09:25 rash iodine Allergy Intermediate rash and Verified 12/25/24 08:54 itching green tea Allergy Mild RASH Verified 12/25/24 08:54 Iodinated Contrast Media Allergy Mild RASH/ITCHIN Verified 12/25/24 08:54 G levofloxacin Allergy Mild ITCHY Verified 12/25/24 08:54 (TOLERATES CIPRO) lutein Allergy Mild RASH/ITCHIN Verified 12/25/24 08:54 G Medications Home Medications Medication Instructions Recorded Confirmed Last Taken albuterol sulfate 90 mcg/actuation 2 puff inhalation Q6H PRN 06/21/19 12/25/24 05/04/22 aerosol inhaler Shortness Of Breath Or Wheezing azelastine 137 mcg (0.1 %) nasal 2 spray intranasal Q12H 06/21/19 12/25/24 05/17/22 22:30 spray cetirizine 10 mg capsule 10 mg PO DAILY PRN Allergy Symptoms 06/21/19 12/25/24 05/11/22 cholecalciferol (vitamin D3) 125 5,000 unit PO BID 06/21/19 01/06/25 05/16/22 08:30 mcg (5,000 unit) tablet (Vitamin D3) fluticasone 250 mcg-salmeterol 50 1 inh inhalation BID 06/21/19 12/25/24 05/18/22 04:30 mcg/dose blistr powdr for inhalation (Advair Diskus) ketotifen fumarate 0.025 % (0.035 1 drp ophthalmic (eye) Q12H PRN 06/21/19 12/25/24 Unknown %) eye drops (Zaditor) Itching multivitamin 1 tab PO QAM 06/21/19 12/25/24 05/04/22 zafirlukast 20 mg tablet (Accolate) 20 mg PO BID 06/21/19 12/25/24 05/17/22 22:30 albuterol sulfate 0.63 mg/3 mL 0.63 mg inhalation Q4H PRN SHORT 11/03/21 12/25/24 Unknown solution for nebulization OF BREATH bimatoprost 0.01 % eye drops 1 drp OPB HS 11/03/21 12/25/24 05/17/22 22:30 (Sachin) cyanocobalamin (vitamin B-12) 1,000 mcg PO QAM 11/03/21 12/25/24 05/16/22 08:30 1,000 mcg capsule duloxetine 60 mg capsule,delayed 60 mg PO QAM 11/03/21 12/25/24 05/18/22 04:30 release famotidine 20 mg tablet (Pepcid) 20 mg PO DAILY PRN Heartburn 11/03/21 12/25/24 05/11/22 fexofenadine 180 mg tablet 180 mg PO DAILY PRN ALLERGY RELIEF 11/03/21 12/25/24 Unknown guaifenesin 1,200 mg tablet, 1,200 mg PO Q12H PRN Cough 11/03/21 12/25/24 Unknown extended release 12 hr (Mucinex) Gabbie Apple Cidar Vinegar 2 tab PO QAM 05/13/22 12/25/24 05/16/22 08:30 atorvastatin 10 mg tablet 10 mg PO QPM 12/22/22 12/25/24 Unknown acetaminophen 650 mg 650 mg PO Q8H PRN prn 12/25/24 12/25/24 Unknown tablet,extended release calcium 600 mg capsule 1,200 mg PO QPM 12/25/24 12/25/24 Unknown coenzyme Q10 200 mg capsule (Co 200 mg PO QAM 12/25/24 12/25/24 Unknown Q-10) conjugated estrogens 0.625 mg/gram 0.625 mg vaginal UD 12/25/24 12/25/24 Unknown vaginal cream glucosamine sulf dipot 1 cap PO DAILY 12/25/24 12/25/24 Unknown chlr,msm,chond 550 mg-C 30 mg-concepción 1 mg capsule (Glucosamine Chondroitin) hydrocodone 5 mg-acetaminophen 325 1 tab PO Q8H PRN prn 12/25/24 12/25/24 Unknown mg tablet krill oil 500 mg capsule 500 mg PO DAILY 12/25/24 12/25/24 Unknown lactobacillus combination no.4 3 3,000 mmu cells PO QAM 12/25/24 12/25/24 Unknown billion cell capsule (Probiotic) levocetirizine 5 mg tablet (Xyzal) 5 mg PO DAILY PRN prn 12/25/24 12/25/24 Unknown turmeric 400 mg capsule 400 mg PO QAM 12/25/24 12/25/24 Unknown zinc 50 mg capsule 50 mg PO QPM 12/25/24 12/25/24 Unknown Additional Notes: Patient was instructed cannot take vitamin D morning of surgery unless otherwise directed by surgeon. She verbalized understanding, denied questions or concerns, additional medications/supplements. Past Medical History Medical History (Updated 01/06/25 @ 11:51 by Carine Bernabe PA-C) Anxiety Asthma stable, uses inhaler prn-last use several months ago Diabetes diet controlled Environmental and seasonal allergies GERD (gastroesophageal reflux disease) controlled, stable per pt Glaucoma High cholesterol History of anesthesia reaction very cold after 2022 knee replacement, states oral temp was low Hx of cervical cancer s/p surgery and radiation Osteoarthritis Osteopenia Spinal stenosis Stress bladder incontinence, female Patient denies h/o stroke, seizures, heart attack, heart failure, HTN, blood clots/DVTs or blood transfusions. Exercise / Class Metabolic Activity II 4-5 Yardwork/Stairs/Walk up hill (denies chest discomfort or shortness of breath with one flight of stairs) Past Family History Family History Aunt Asthma Mother Diabetes Alzheimer disease Father Prostate cancer Other No family history of adverse response to anesthesia Denies family history of Ovarian cancer Breast cancer Colorectal cancer Past Surgical History Surgical History H/O total hysterectomy History of appendectomy History of colonoscopy History of knee replacement procedure of left knee History of lumbar surgery 2014: L3-L5 lumbar decompression and fusion, [facility], Dr Genao History of nasal polypectomy History of repair of rotator cuff right + bicep tendon repair History of surgery Vaginal sling procedure 02/14/22 per PCP records History of tooth extraction Nausea and vomiting after administration of anesthetic agent Past Anesthesia History No Family Hx of Anesthesia Complications History of PONV No Hx of Motion Sickness and History of PONV (denies needing scop patch) Social History Smoking Status: Never smoker Do You Dip or Chew Tobacco: No Hx Alcohol Use: Yes alcohol intake frequency: holidays/special occasions only Hx Substance Use: No substance use type: does not use Review of Systems Patient denies chest pain, shortness of breath, dyspnea on exertion, snoring, witnessed apneas, fever, chills, cough, wheezing, or palpitations. Physical Exam Vital Signs Vitals BP 108/70 P 76 TEMP 98.0 SP02 96% on RA RESP 18 Physical Patient resting comfortably in chair in no acute distress, alert and oriented, responding appropriately throughout visit Full cervical extension range of motion without pain TMD 3 finger breadths Mallampati Score 3 Dentition: several caps, denies chipped or loose teeth, crowns, implants or bridges Lungs: normal respiratory effort. Good air movement, clear throughout to auscultation, no adventitious breath sounds Cardiac: regular rate and rhythm, no murmurs noted Carotid arteries: negative bruit bilat Lab Results Anesthesia Preop Results Results Anesthesia Widget: WBC 5.85 K/ul (4.8-10.8) 01/06/25 Hgb 12.8 g/dl (12.0-16.0) 01/06/25 Hct 37.9 % (37.0-47.0) 01/06/25 Plt 301 K/uL (130-400) 01/06/25 Na 138 mmol/L (136-145) 01/06/25 K 4.2 mmol/L (3.5-5.1) 01/06/25 Cl 104 mmol/L (98-107) 01/06/25 CO2 27 mmol/L (21-32) 01/06/25 BUN 16 mg/dl (6-23) 01/06/25 Creat 0.65 mg/dl (0.6-1.2) 01/06/25 Glucose Level 106 mg/dl (70-99(Fasting)) H 01/06/25 PT 10.6 Seconds (9.0-12.0) 01/06/25 PTT 25 Seconds (21-31) 01/06/25 INR 1.0 (0.9-1.1) 01/06/25 HA1c 6.4 % (4.5-5.6) H 01/06/25 Urine Color Yellow 01/06/25 Urine Appearance Clear (Clear) 01/06/25 Urine pH 5.0 (4.5-7.5) 01/06/25 Urine Specific [place] 1.018 (1.000-1.030) 01/06/25 Urine Protein Negative (Negative) 01/06/25 Urine Glucose (UA) Negative (Negative) 01/06/25 Urine Ketones Negative (Negative) 01/06/25 Urine Blood Negative (Negative) 01/06/25 Urine Nitrite Negative (Negative) 01/06/25 Urine Bilirubin Negative (Negative) 01/06/25 Urine Urobilinogen Negative (Negative) 01/06/25 Urine Leukocyte Esterase 2+ (Negative) H 01/06/25 Urine WBC (Auto) 6-10 /hpf (0-5) H 01/06/25 Urine RBC (Auto) 0-2 /hpf (0-2) 01/06/25 Urine Hyaline Casts (Auto) 0-2 /lpf (0-2) 01/06/25 Urine Epithelial Cells (Auto) 0-2 /hpf (0-2) 01/06/25 Urine Bacteria (Auto) None Seen (None Seen) 01/06/25 Blood Type A Positive 01/06/25 Antibody Screen NEGATIVE 01/06/25 Testing Electrocardiogram Date: 01/06/25 NSR, rate 69 bpm Chest X-Ray Date: 01/06/25 No acute cardiopulmonary findings.
[~2025-03-07 06:36] MED LIST changes: -ACCL20 PO; +ACETAMINOPHEN 500 MG TAB PO SCH; -ALBU1AER9 INH; -ASTN; -ATV5 PO; -CLR10 PO; -DESO0.259 TOP; -FLUT0.0529 NAE; -FLUT110A INH; -FLX10 PO; +GABAPENTIN 300 MG CAP PO SCH; -KETO0.0216 OP; +LR 15ML/HR IV SCH; +LR 60ML/HR IV SCH; -PRLSR20 PO; -PSEU60TA80 PO; -PXL20 PO; -SENN-104 PO; -SIMV-150 PO; +ceFAZolin 2000MG 2,000 MG/15 ML SYR IV SCH
--- OUTSIDE RECORDS SUMMARY | 2025-03-07 06:43 | External Medical Summary | Summary of Care ---
Author Name Unknown Organization [facility] Address [address] [place] [address] Phone [phone] Care Team Providers Care Roofer Apprentice Name Role Phone Mimi Raymundo DO Primary Care Provider Reason for Visit * Reason Onset Date Comments Medication Refill 02/27/2025 Encounter Details Date Type Department Care Team (Late st Contact Info) Description 02/27/2025 Refill Family Medicine [address] [phone] Mimi Raymundo DO [address] [place] [address] [place] [id number] Generalized osteoarthritis Allergies Active Allergy Reactions Criticality Noted Date Comments Salicylates 06/10/2005 asthma Ivp Dye 02/17/2003 itching and rash Levofloxacin Hemihydrate 03/16/2001 itching Vegetable Enzyme 06/10/2005 itching documented as of this encounter (statuses as of 02/28/2025) Medications NASAL SALINE 0.65 % NA SOLNIndications:Ot her chronic sinusitis 2 squirts each nostril morning and night and every 2-4 hrs as needed for nasal dryness or congestion 1 0 06/10/20 05 Active ZADITOR 0.025 % OP SOLNIndications:Al lergic conjunctivitis one drop each eye every 8-12 hrs for eye itching 1 Bottle 5 05/03/20 13 Active TOPICORT 0.25 % EX CREAIndications:De rmatitis apply to rash twice a day x 14 days 15 g 1 04/22/20 14 Active ALBUTEROL SULFATE (2.5 MG/3ML) 0.083% IN NEBUIndications:As thma, mild persistent One vial in nebulizer every 4 hours as needed for wheezing or cough or SOB 120 Vial 5 12/02/19 15 Active triamcinolone acetonide (ARISTOCORT) 0.1 % creamIndications:D ermatitis Apply topically to affected area 2 times a day as needed for Itching. To affected area. 15 g 1 05/11/20 16 Active Multiple Vitamins-Minerals (ONE-A-DAY WOMENS HEALTHY SKIN) TABS Take 1 Tab by mouth daily. Active Misc Natural Products (GLUCOSAMINE CHONDROITIN COMPLX) TABS Take 1 Tablet by mouth in the morning and 1 Tablet before bedtime. Active Calcium Carb-Cholecalcifer ol (CALCIUM + D3) 600-200 MG-UNIT per tabletIndications: takes at night Take 1 Tablet by mouth in the morning. Active Cyanocobalamin (VITAMIN B-12) 1000 MCG Tablet Take 1 Tablet by mouth in the morning. Active Coenzyme Q10 (CO Q 10) 100 MG CAPS Take 1 Cap by mouth daily. Active Cholecalciferol (VITAMIN D3) 5000 UNITS TabletIndications: takes in the evening Take 1 Tablet by mouth in the morning. Active albuterol (PROAIR HFA) 108 (90 BASE) MCG/ACT inhaler Inhale 2 Puffs by mouth every 4 hours as needed for Cough, Shortness of Breath or Wheezing. 1 Inhaler 5 11/10/20 16 Active Azelastine HCl 0.1 % nasal spray USE 2 SPRAYS IN EACH NOSTRIL TWICE A DAY 90 mL 3 10/03/20 18 Active Cetirizine HCl 10 MG Capsule Take 1 Capsule by mouth in the morning. 04/02/20 19 Active Bimatoprost 0.01 % Ophthalmic Solution Instill 1 Drop into both eyes at bedtime. Active Krill Oil 1000 MG Capsule Take 1 Capsule by mouth in the morning. Active Fluticasone Propionate 50 MCG/ACT Nasal Suspension (FLONASE)Indicatio ns:Hypertrophy of both inferior nasal turbinates,Nasal sinus polyp,Chronic pansinusitis USE 2 SPRAYS IN EACH NOSTRIL TWICE A DAY 48 g 2 11/27/19 21 Active Famotidine 20 MG Oral Tablet Take 1 Tablet by mouth as needed for Heartburn. Active Acetaminophen 325 MG Oral Tablet (Tylenol) Take by mouth 2 Tablets every 6 hours as needed for Pain, Mild. 60 Tablet 02/15/20 22 Active Sennosides 8.6 MG Oral Tablet (Senokot) Take by mouth 1 Tablet in the morning AND 1 Tablet before bedtime. 90 Tablet 02/15/20 22 Active Premarin 0.625 MG/GM Vaginal Cream (Estrogens, Conjugated) Administer into the vagina at bedtime . As directed. 42.5 g 6 03/11/20 22 Active Atorvastatin Calcium 10 MG Oral Tablet (Lipitor)Indicatio ns:Hyperlipidemia with target LDL less than 70 Take 1 Tablet by mouth in the morning. 90 Tablet 3 06/20/20 24 Active DULoxetine HCl 60 MG Oral Capsule Delayed Release Particles (Cymbalta) Take 1 Capsule by mouth in the morning. Do not cut, crush or chew. 90 Capsule 3 09/27/20 24 Active Zafirlukast 20 MG Oral Tablet (Accolate) TAKE 1 TABLET TWICE A DAY ON AN EMPTY STOMACH 180 Tablet 3 10/03/20 24 Active predniSONE 50 MG Oral Tablet (Deltasone)Indicat ions:Cervical radicular pain,Cervical stenosis of spinal canal Take one tablet by mouth 13 hours prior to procedure. Take one tablet by mouth one hour prior to procedure. 2 Tablet 11/07/20 24 Active Benadryl Allergy Extra Str 50 MG Oral Tablet (diphenhydrAMINE HCl)Indications:Ce rvical radicular pain,Cervical stenosis of spinal canal Take one tablet by mouth one hour prior to procedure. 1 Tablet 11/07/20 24 Active Fluticasone-Salmet adelita 250-50 MCG/ACT Inhalation Aerosol Powder Breath Activated (Advair Diskus) Inhale 1 Puff by mouth in the morning and 1 Puff before bedtime. 180 Each 3 12/03/19 25 Active Benzonatate 100 MG Oral Capsule (Tessalon Perles)Indications :Flu-like symptoms Take 1 Capsule by mouth 3 times a day as needed for Cough. Do not cut, crush, or chew. 21 Capsule 01/16/20 25 Active Azithromycin 250 MG Oral Tablet (Zithromax Z-Ryan)Indications: Bronchitis Take two tablets by mouth on first day, then 1 tablet daily until gone 6 Tablet 01/28/20 25 Active HYDROcodone-Acetam inophen 5-325 MG Oral TabletIndications: Generalized osteoarthritis Take 1 Tablet by mouth every 8 hours as needed for Pain, Severe. On going therapy 30 Tablet 02/29/20 25 Active HYDROcodone-Acetam inophen 5-325 MG Oral TabletIndications: Generalized osteoarthritis Take 1 Tablet by mouth every 8 hours as needed for Pain, Severe. 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 Ophthalmology History of colon polyps 10/04/2019 Nasal sinus polyp 05/13/2019 Hypertrophy of both inferior nasal turbinates Sensorineural hearing loss (SNHL) of both ears 0 05/13/2019 Hyposmia 05/13/2019 Type 2 diabetes mellitus wit h hemoglobin A1c goal of less than 7.0% 03/22/2017 Generalized osteoarthritis 01/10/2017 Bilateral primary osteoarthritis of knee 016 MEDICATION USE AGREEMENT 01/18/2014 History of cervical cancer 04/20/2013 Stress incontinence, female 09/18/2012 Allergic rhinitis 04/13/2012 Allergic conjunctivitis 04/13/2012 Chronic sinusitis 04/13/2012 GERD (gastroesophageal reflux disease) 2 Asthma, mild persistent 04/13/2012 Hyperlipidemia with target LDL less than 70 11/21 Anxiety state 03/31/2007 Atrophic vaginitis documented as of this encounter (statuses as of 02/28/2025) Resolved Problems Problem Noted Date Diagnosed Date Resolved Date Upper respiratory tract infection 10/10/2023 01/02/2024 Advanced directives, counseling/discussion 09/17/2021 08/07/2024 Obesity, Class I, BMI 30.0-3 4.9 (see actual BMI) 06/23/2021 12/24/2021 Abnormal mammogram 11/10/2020 1 Overview (11/10/2020): BIRADS-3 Prediabetes 09/19/2017 11/09/2021 Lymphedema of left lower extremity 09/19/2017 04/02/2019 Nasal sinus polyp 04/13/2012 09/19/2017 Osteoarthritis, knee 03/08/2012 016 Asthma, moderate persistent 08/12/2010 04/13/2012 Primary localized osteoarthr osis of pelvic region or thigh 07/16/2010 09/19/2017 Dyslipidemia, goal to be determined 10/27/2009 12/18/2009 Overview (10/27/2009): Per Lipid Taxonomy. Mixed dyslipidemia 10/27/2006 9 Overview (10/27/2009): Per Lipid Taxonomy. EXTRINSIC ASTHMA, MODERATE PERSISTENT 07/01/2006 08/12/2010 ADVANCE DIRECTIVE INFORMATION 07/29/2005 09/19/2017 Overview (07/29/2005): No, Advance Directive brochure given to patient. PURE HYPERCHOLESTEROLEM 06/17/200502/2007 LOC PRIM PCTOXALL-B-BFQ 06/17/200507/2008 Nasal polyp 06/10/2005 04/13/2012 CHR ALLRG CONJUNCTIV NEC 06/10/2005 Other chronic sinusitis 03/22/200303/21 Other lymphedema 02/17/2003 09/19/2017 ABN PAP SMEAR-CERVIX 12/13/2002 008 MAL GONZÁLEZ CERVIX UTERI NOS 12/13/200211/2012 Other allergic rhinitis 03/21 Overview (09/12/2017): ICD-10 update of inactive term Cancer of cervix 02/11/2008 Need for prophylactic hormon e replacement therapy (postmenopausal) 04/20/2013 CALCIF TENDINITIS SHLDER Esophageal reflux 04/13/2012 Localized osteoarthrosis, lower leg 02/11/2008 Impaired fasting glucose 01/2017 Spinal stenosis of lumbar re gion without neurogenic claudication 09/19/2017 Degeneration of lumbosacral intervertebral disc 09/19/2017 Tubular adenoma of colon documented as of this encounter (statuses as of 02/28/2025) Immunizations Name Administration Dates Next Due COVID-19 mRNA, LNP-s, No Pre serve, 2-Dose Series ([employer]) 09/07/2021,02/04/2021,01/14/2021 COVID-19, LNP-s, No Preserve , Alexandr-sucrose, Ages 12+ (Pfizer) 06/28/2022 COVID-19, MRNA-LNP, PF, 30 M CG/0.3 mL, 12 YRS AND ABOVE, IM (PFIZER-Comirnat) 08/07/2024,01/10/2024 H1N1 2009 Influenza, IM 03/06/2010 Pneumococcal Conjugate Vacci ne, 20-valent ([id number]) 06/24/2022 Pneumococcal Polysaccharide PPV23 (Pneumovax) 06/23/2021,06/26/2009,03/20/2009(Defe rred: Patient Refused) Seasonal Influenza Vac., MDV , IM, 0.5 mL (Fluzone) 07/29/2014,08/02/2013,09/18/2012,08/20,08/21/2010,08/07/2009,10/31/20 08,09/25/2007,08/25/2006 08/07/2010 Seasonal Influenza, High Dos e, Trivalent, PF, IM (Fluzone HD) 09/14/2024 Seasonal Influenza, PF, 6 M & above, IM , (FluLaval or Fluzone) 09/10/2019,08/30/2018,09/19/2017 Seasonal Influenza, Quadriva lent Hd (Fluzone Hd) 01/02/2024,09/22/2022,10/19/2021 Seasonal Influenza, Quadriva lent Hd, 65+ Yrs 08/31/2020 Seasonal Influenza, Quadriva lent, No Preserve, IM 11/10/2016,10/01/2015 TD - Tetanus/Diptheria (ADULT) 11/20/2005 TDAP (age 10 and older)(Boostrix) 07/29/2014 Varicella Zoster Vaccine Ishan lt (Zostavax) 05/11/2016 Zoster Vaccine Recombinant (Shingrix) 08/12/2020 ,06/09/2020 documented as of this encounter Social History Tobacco Use Types Packs/Day Years Used Date Smoking Tobacco: Never Smokeless Tobacco: Never Comments:no passive smoke ex posures Alcohol Use Standard Drinks/Week Comments Yes 0 (1 standard drink = 0.6 oz pur e alcohol) very rare PHQ-2 Answer Date Recorded PHQ-2 Score 0 06/09/2020 Comments No Sex and Gender Information Value Date Recorded Sex Assigned at Not on file Legal Sex Female 5:27 AM EST Gender Identity Not on file Sexual Orientation Not on file 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 On going therapy Authorizing Provider: MIMI RAYMUNDO * Telephone Encounter - Laya Kimble [facility] - 02/27/2025 4:50 PM EDTPending Prescriptions: Disp Refills HYDROcodone-Acetaminophen 5-325 MG Oral Ta*30 Tab*0 Sig: Take 1 Tablet by mouth every 8 hours as needed for Pain, Severe. On going therapy * Telephone Encounter - Laya Kimble [place] [facility] - 02/27/2025 4:48 PM EDT I have reviewed the patient’s controlled substance dispensing history in the Prescription Drug Monitoring Program in compliance with the [facility] regulations before prescribing a controlled substance. PDMP checked on 02/27/2025. Pending Prescriptions: Disp Refills HYDROcodone-Acetaminophen 5-325 MG Oral T*30 Tab*0 Sig: Take 1 Tablet by mouth every 8 hours as needed for Pain, Severe. On going therapy Last Visit: 01/16/2025 (in office), Visit date not found (telemedicine) Next Visit: 04/01/2025 Date medication was last filled: 01/09/25 Date medication is due for refill: 01/19/25 Pharmacy: [facility], [address] [place] Is this request for a controlled substance? Yes and Urine Drug Screen was completed Toxicology results: Results for orders placed or performed in visit on 08/07/24 PAIN MANAGEMENT DRUG PANEL, URINE W/ INTERPRETATION Result Value Pain Management Interpretation Based on the medication information provided and from [facility]: The presence of hydrocodone, dihydrocodeine and hydromorphone is CONSISTENT with hydrocodone use asprescribed in [facility]. Amphetamines Screen, U Negative Benzodiazepines Screen, U Negative Cannabinoids Screen, U Negative Cocaine Metabolite Screen, U Negative Fentanyl Screen, U Negative Hydrocodone Screen, U Refer to confirmation results (A) Methadone Metabolite Screen, U Negative Morphine/Codeine Screen, U Refer to confirmation results (A) Oxycodone Screen, U Refer to confirmation results (A) Specimen Validity Interpretation Normal Creatinine, U 127 Narrative Cutoff Concentrations: Drug Level Amphetamines 500 ng/mL Benzodiazepines 100 ng/mL Cannabinoids 50 ng/mL Cocaine Metabolite 150 ng/mL Fentanyl 1 ng/mL Hydrocodone / Hydromorphone 300 ng/mL Methadone Metabolite 100 ng/mL Morphine / Codeine 300 ng/mL Oxycodone / Oxymorphone 100 ng/mL Screening results are presumptive and can only be used for medical purposes. Confirmatory testing is available upon request. Results for orders placed or performed in visit on 01/18/14 TOX SCREEN, URINE, W/ CONFIRMATION Result Value Amphetamine Screen, U NEGATIVE Barbiturates Screen, U NEGATIVE Benzodiazepines Screen, U NEGATIVE Cannabinoids Screen, U NEGATIVE Cocaine Metabolite Screen, U NEGATIVE Morphine/Codeine Screen, U POSITIVE (A) Methadone Metabolite Screen, U NEGATIVE Oxycodone Screen, U NEGATIVE TOX COMMENT SCREENING RESULTS ARE PRESUMPTIVE AND CAN ONLY BE USED FOR MEDICAL PURPOSES. POSITIVE RESULTS REFLEX TO CONFIRMATORY TESTING. Cutoff Concentration ) *Note: Due to a large number of results and/or encounters for the requested time period, some results have not been displayed. A complete set of results can be found in Results Review. Please approve if appropriate. Thanks, Laya Kimble PharmD Clinical Pharmacist [facility] ([facility]) [phone] 02/27/2025 4:48 PM * Telephone Encounter - Raymond Sousa PHARM Tech - 02/27/2025 12:05 PM EDT Did you pend patient's preferred pharmacy and medication before forwarding?yes Pharmacy: [facility], [address] [place] Pending Prescriptions: Disp Refills HYDROcodone-Acetaminophen 5-325 MG Oral T*30 Tab*0 Sig: Take 1 Tablet by mouth every 8 hours as needed for Pain, Severe. On going therapy Last Visit: 01/16/2025 (in office), Visit date not found (telemedicine) Next Visit: 04/01/2025 If no future appointments scheduled, and last appointment is greater than a year ago, please schedule patient for a follow-up appointment Last date the medication was ordered: 01/09/2025 Is this request for a controlled substance?Yes, What was the last refill date 01/09/2025 w/ quantity 30 and dosage 5-325mg and Urine Drug Screen was completed Urine Drug Screen: Results for orders placed or performed in visit on 08/07/24 PAIN MANAGEMENT DRUG PANEL, URINE W/ INTERPRETATION Result Value Pain Management Interpretation Based on the medication information provided and from [facility]: The presence of hydrocodone, dihydrocodeine and hydromorphone is CONSISTENT with hydrocodone use asprescribed in [facility]. Amphetamines Screen, U Negative Benzodiazepines Screen, U Negative Cannabinoids Screen, U Negative Cocaine Metabolite Screen, U Negative Fentanyl Screen, U Negative Hydrocodone Screen, U Refer to confirmation results (A) Methadone Metabolite Screen, U Negative Morphine/Codeine Screen, U Refer to confirmation results (A) Oxycodone Screen, U Refer to confirmation results (A) Specimen Validity Interpretation Normal Creatinine, U 127 Narrative Cutoff Concentrations: Drug Level Amphetamines 500 ng/mL Benzodiazepines 100 ng/mL Cannabinoids 50 ng/mL Cocaine Metabolite 150 ng/mL Fentanyl 1 ng/mL Hydrocodone / Hydromorphone 300 ng/mL Methadone Metabolite 100 ng/mL Morphine / Codeine 300 ng/mL Oxycodone / Oxymorphone 100 ng/mL Screening results are presumptive and can only be used for medical purposes. Confirmatory testing is available upon request. Results for orders placed or performed in visit on 01/18/14 TOX SCREEN, URINE, W/ CONFIRMATION Result Value Amphetamine Screen, U NEGATIVE Barbiturates Screen, U NEGATIVE Benzodiazepines Screen, U NEGATIVE Cannabinoids Screen, U NEGATIVE Cocaine Metabolite Screen, U NEGATIVE Morphine/Codeine Screen, U POSITIVE (A) Methadone Metabolite Screen, U NEGATIVE Oxycodone Screen, U NEGATIVE TOX COMMENT SCREENING RESULTS ARE PRESUMPTIVE AND CAN ONLY BE USED FOR MEDICAL PURPOSES. POSITIVE RESULTS REFLEX TO CONFIRMATORY TESTING. Cutoff Concentration ) *Note: Due to a large number of results and/or encounters for the requested time period, some results have not been displayed. A complete set of results can be found in Results Review. Patient Phone Numbers Labs: Lab Results Component Value Date/Time CREAT 0.7 08/07/2024 03:20 PM CREAT 0.74 11/04/2021 12:00 AM CREAT 0.9 06/09/2020 03:44 PM POTASSIUM 4.5 08/07/2024 03:20 PM POTASSIUM 4.4 11/04/2021 12:00 AM POTASSIUM 4.3 06/09/2020 03:44 PM TSH 2.50 03/22/2018 11:42 AM LDL 72 08/07/2024 03:20 PM LDL 106 06/09/2020 03:44 PM LDL NOT APPLICABLE 06/09/2020 03:44 PM ALT 19 08/07/2024 03:20 PM ALT 12 06/09/2020 03:44 PM HGBA1C 6.6 (H) 08/07/2024 03:20 PM HGBA1C 6.4 (A) 11/04/2021 12:00 AM HGBA1C 6.4 (H) 06/09/2020 03:44 PM Thank you, Raymond Sousa Septic Tank Setter I [facility] 02/27/2025,12:09 PM documented in this encounter Plan of Treatment Upcoming Encounters Date Type Department Care Team (Late st Contact Info) Description 04/01/2025 3:10 PM EDT Office Visit Family Medicine [address] [place] [phone] [place] [id number] 04/01/2025 3:50 PM EDT Laboratory Laboratory [address] [place] [phone] [facility] [address] [place] [id number] Scheduled Procedures Name Priority Associated Diagnoses Date/Ti me COLONOSCOPY FLEXIBLE PROXIMA L DIAGNOSTIC Recall History of colonic polyps Health Maintenance Due Date Last Done Comments Depression Screening 1967 Cologuard 2000 Fecal Occult Blood Test 2000 Sigmoidoscopy 2000 Adult Wellness Visit 2021 DTap/Tdap Vaccines (2 - Td or Tdap) 07/29/2024 07/29/2014, 11/20/2005 Albumin/Creatinine Ratio 01/02/2025 024, 05/16/2023, 12/27/2022, Additional history exists Diabetic Foot Exam 01/02/2025 01/02/2024, 0 12/27/2022, 12/24/2021, Additional history exists COVID-19 Vaccine ( season) 2025 08/07/2024, 01/10/2024, 01/10/2024, Additional history exists HbA1c 02/04/2025 08/07/2024, 12/21, 06/27/2023, Additional history exists GFR 08/07/2025 08/07/2024, 08/0 06/2023, 05/16/2023, Additional history exists Mammogram 11/06/2025 11/06/2024, 10/20, 11/02/2023, Additional history exists Diabetic Eye Exam 12/02/2025 12/02/2024, , 05/30/2024, Additional history exists Colonoscopy 04/06/2028 04/06/2023, 03/20, 11/08/2019, Additional history exists Colorectal Cancer Screening 04/06/2028 DXA Scan 06/23/2028 06/23/2021, 01/17/2011 Lipid Panel 08/07/2029 08/07/2024, 080 06/2023, 12/23/2022, Additional history exists Zoster Vaccines Completed 08/12/2020, 05/21, 05/11/2016 Pneumococcal Vaccine: 50+ Years Completed 06/24/2022, 06/23/2021, 06/26/2009 RETIRED - COLONOSCOPY-EVERY 5 YRS AGES 18-100 Discontinued 04/06/2023, 04/06/2023, 11/08/2019, Additional history exists Influenza Vaccine (FLU shot) Completed 09/14/2024, 09/14/2024, 01/02/2024, Additional history exists HPV (Gardasil) Vaccine Aged Out No lo nger eligible based on patient's age to complete this topic Hepatitis B Vaccine Aged Out No longe r eligible based on patient's age to complete this topic MENINGOCOCCAL (MENACTRA/MENVEO) Aged Out No longer eligible based on patient's age to complete this topic Meningitis B Vaccine (Bexsero/Trumemba) Aged Out No longer eligible based on patient's age to complete this topic documented as of this encounter Medical Devices Implanted Type Area Dieing Out Machine Operator Device Identifier Shelf Expiration Date Model / Serial / Lot Desara Blue Tv Sling For Female Stress Urinary Incontinence Implanted:Qty: 1 on 02/14/2022 by Beth Washington MD at OR [facility] [place] N/A: [employer] 10/04/2024 [id number] / / [id number] documented as of this encounter Visit Diagnoses Diagnosis Generalized osteoarthritis Generalized osteoarthrosis, unspecified site documented in this encounter Advance Directives * Full Code (Latest Code Status on File) Date Activated Date Inactivated Comments 02/14/2022 1:30 PM 02/14/2022 7:19 PM This order r eflects the patients wishes and were consensually agreed upon. Care Teams Roofer Apprentice Relationship Specialty Start Date End Date Mimi Raymundo DO [address] [place] [address] [place] [phone] PCP - General Internal Medicine 09/19/17 documented as of this encounter
--- OUTSIDE RECORDS SUMMARY | 2025-03-07 06:44 | External Medical Summary | Summary of Care ---
Author Name Unknown Organization [facility] Address [address] [place] [address] Phone [phone] Care Team Providers Care Display Maker Name Role Phone Uyen Adams Primary Care Provider Reason for Referral * Precert (Within 10 days (routine)) - Authorized Specialty Diagnoses / Procedures Referred By Contac t Referred To Contact Pain Medicine Diagnoses Cervical radicular pain Cervical stenosis of spinal canal Procedures INJECT DX/THER SUBSTANCE INTERLAMINAR CERVICAL/THORACIC W IMAGE GUIDE Ely Gomez PA-C [address] [place] [address] Phone: tel: fax: Referral ID Status Reason Start Date Expiration Date V isits Requested Visits Authorized [id number] Authorized 02/05/[phone] Reason for Visit * Reason Onset Date Comments Follow Up 11/07/2024 Encounter Details Date Type Department Care Team (Late st Contact Info) Description 11/07/2024 Telephone [facility], [facility] [address] [place] [address] Ely Gomez PA-C [address] [place] [address] Follow Up Allergies Active Allergy Reactions Criticality Noted Date Comments Salicylates 06/10/2005 asthma Ivp Dye 02/17/2003 itching and rash Levofloxacin Hemihydrate 03/16/2001 itching Vegetable Enzyme 06/10/2005 itching documented as of this encounter (statuses as of 02/07/2025) Medications NASAL SALINE 0.65 % NA SOLNIndications:Ot [...] hour prior to procedure. 1 Tablet 11/07/20 Active Fluticasone-Salmet adelita 250-50 MCG/ACT Inhalation Aerosol Powder Breath Activated (Advair Diskus) Inhale 1 Puff by mouth in the morning and 1 Puff before bedtime. 180 Each 3 09/29/20 23 025 Discontin ued(Refil l) methylPREDNISolone 4 MG Oral Tablet Therapy Pack (Medrol Dosepack) follow package directions 21 Tablet 09/05/20 24 025 Discontin ued(Medic ation List Clean Up) HYDROcodone-Acetam inophen 5-325 MG Oral TabletIndications: Generalized osteoarthritis Take 1 Tablet by mouth every 8 hours as needed for Pain, Severe. 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 PURE HYPERCHOLESTEROLEM 06/17/200502/2007 LOC PRIM [id number] 06/17/2005 0507/2008 Nasal polyp 06/10/2005 04/13/2012 [facility] ALLRG CONJUNCTIV [...] as of this encounter (statuses as of 02/07/2025) Immunizations Name Administration Dates Next Due COVID-19 mRNA, LNP-s, No Pre serve, 2-Dose Series ([facility]) 09/07/2021,02/04/2021,01/14/2021 COVID-19, LNP-s, No Preserve , Alexandr-sucrose, Ages 12+ (Pfizer) 06/28/2022 COVID-19, MRNA-LNP, PF, 30 M CG/0.3 mL, 12 YRS AND ABOVE, IM (PFIZER-Comirnaty) 08/07/2024,01/10/2024 H1N1 2009 Influenza, IM 03/06/2010 Pneumococcal Conjugate Vacci ne, 20-valent ([id number]) 06/24/2022 Pneumococcal Polysaccharide PPV23 (Pneumovax) 06/23/2021,06/26/2009,03/20/2009(Defe rred: [...] 10 and older)(Boostrix) 07/29/2014 Varicella Zoster Vaccine (Adult) 05/11/2016 Zoster Vaccine Recombinant (Shingrix) 08/12/2020 ,06/09/2020 [...] encounter Miscellaneous Notes * Telephone Encounter - Usha Gomez LPN - 11/07/2024 3:26 PM EST Patient aware of pre op instructions, verbalized understanding. Please place SUBHASH order. Lola-needs scheduled after Nov 28 * Telephone Encounter - Sheryl Guerrero OSA - 11/07/2024 2:59 PM EST Patient returned call and she was given message from Usha. Patient wanted to inform Usha that she has an appointment schedule with the spine team on 11/28/24 at 12:30 pm. * Telephone Encounter - Usha Gomez LPN - 11/07/2024 1:34 PM EST Left message for patient to return call * Telephone Encounter - Ely Gomez PA-C - 11/07/2024 12:24 PM EST ----- Message from Jarod Gutierrez DO sent at 11/06/2024 12:15 PM EST ----- Yes, good to go with SUBHASH if they don't proceed with surgery. Pred 50mg 13 hours before and 1 hour before. Benadryl 50mg 1 hour before. Thanks! MP ----- Message ----- From: Ely Gomez PA-C Sent: 11/06/2024 11:14 AM EST To: Jarod Gutierrez, DO Are you able to review her C spine MRI? Significant central stenosis with cord signal changes. She denies hx cervical spine surgery/trauma. Did already place referral to [facility] - c/o UE pain, paresthesia and dexterity changes. Would you consider SUBHASH? There is CSF at C7/T1 level. Does have hx urticaria reaction with IV dye in the past, we briefly discussed probable pre-treatment. Thanks! documented in this encounter Plan of Treatment Upcoming Encounters Date Type Department Care Team (Late st Contact Info) Description 04/01/2025 3:10 PM EDT Office Visit Family Medicine [address] [place] [phone] Uyen Adams [address] [place] [address] 04/01/2025 3:50 PM EDT Laboratory Laboratory [address] [place] [phone] [place] [address] Scheduled Orders Name Type Priority Associated Diagnoses Orde r Schedule INJECT DX/THER SUBSTANCE INTERLAMINAR CERVICAL/THORACIC W IMAGE GUIDE Procedures Routine Cervical radicular pain Cervical stenosis of spinal canal Expected: 02/05/2025, Expires: 12/08/2025 Scheduled Procedures Name Priority Associated Diagnoses Date/Ti me INJECTION SPINE LUMBAR CERVI RAZA OR THORACIC Cervical radiculitis COLONOSCOPY FLEXIBLE PROXIMA L DIAGNOSTIC Recall History of colonic polyps Health Maintenance Due Date Last Done Comments Cologuard 2000 Fecal Occult Blood Test 2000 Sigmoidoscopy 2000 Depression Screening 06/09/2021 06/09/2020 Adult Wellness Visit 2021 DTap/Tdap Vaccines (2 - Td or Tdap) 07/29/2024 07/29/2014, 11/20/2005 Albumin/Creatinine Ratio 01/02/2025 024, 05/16/2023, 12/27/2022, Additional history exists Diabetic Foot Exam 01/02/2025 01/02/2024, 0 12/27/2022, 12/24/2021, Additional history exists COVID-19 Vaccine ( season) 2025 08/07/2024, 01/10/2024, 01/10/2024, Additional history exists HbA1c 02/04/2025 08/07/2024, 12/21, 06/27/2023, Additional history exists GFR 08/07/2025 08/07/2024, 080 06/2023, 05/16/2023, Additional history exists Mammogram 11/06/2025 11/06/2024, 10/20, 11/02/2023, Additional history exists Diabetic Eye Exam 12/02/2025 12/02/2024, , 05/30/2024, Additional history exists Colonoscopy 04/06/2028 04/06/2023, 03/20, 11/08/2019, Additional history exists Colorectal Cancer Screening 04/06/2028 DXA Scan 06/23/2028 06/23/2021, 01/17/2011 Lipid Panel 08/07/2029 08/07/2024, 08/0 06/2023, 12/23/2022, Additional history exists Zoster Vaccines Completed 08/12/2020, 072 11/2019, 05/11/2016 Pneumococcal Vaccine: 50+ Years Completed 06/24/2022, [...] this encounter Medical Devices Implanted Type Area Die Finisher Device Identifier Shelf Expiration Date Model / Serial / Lot Desara Blue Tv Sling For Female Stress Urinary Incontinence Implanted:Qty: 1 on 02/14/2022 by Beth Washington MD at OR [facility] N/A: Pelvis [employer] 10/04/2024 [id number] / / [id number] documented as of this encounter Visit Diagnoses Diagnosis Cervical radicular pain- Primary Brachial neuritis or radiculitis nos Cervical stenosis of spinal canal Spinal stenosis in cervical region documented in this encounter Additional Health Concerns Infection Onset Date Last Indicated Resolved Time Influenza (seasonal) 01/16/2025 01/16/2025 025 12:19 AM EDT documented as of this encounter Advance Directives * Full Code (Latest Code Status on File) Date Activated Date Inactivated Comments 02/14/2022 1:30 PM 02/14/2022 7:19 PM This order r eflects the patients wishes and were consensually agreed upon. Care Teams Display Maker Relationship Specialty Start Date End Date Uyen Adams DO [address] [place] [address] [place] [address] PCP - General Internal Medicine 09/19/17 documented as of this encounter
--- OUTSIDE RECORDS SUMMARY | 2025-03-07 06:44 | External Medical Summary | Summary of Care ---
Author Name Unknown Organization [facility] Address [address] [place] [address] Phone [phone] Care Team Providers Care Want Ad Supervisor Name Role Phone Uyen Adams DO Primary Care Provider Reason for Visit * Reason Onset Date Comments Advice 01/27/2025 No Better Sympto ms Encounter Details Date Type Department Care Team (Late st Contact Info) Description 01/27/2025 Telephone Family Medicine [address] [phone] Uyen Adams DO [address] [place] [address] [place] [address] Advice (No Better Symptoms) Allergies Active Allergy Reactions Criticality Noted Date Comments Salicylates 06/10/2005 asthma Ivp Dye 02/17/2003 itching and rash Levofloxacin Hemihydrate 03/16/2001 itching Vegetable Enzyme 06/10/2005 itching documented as of this encounter (statuses as of 01/27/2025) Medications NASAL SALINE 0.65 % NA SOLNIndications:Ot her chronic sinusitis 2 squirts each nostril morning and night and every 2-4 hrs as needed for nasal dryness or congestion 1 0 5 Active ZADITOR 0.025 % OP SOLNIndications:Al lergic conjunctivitis one drop each eye every 8-12 hrs for eye itching 1 Bottle 5 3 Active TOPICORT 0.25 % EX CREAIndications:De rmatitis apply to rash twice a day x 14 days 15 g 1 4 Active ALBUTEROL SULFATE (2.5 MG/3ML) 0.083% IN NEBUIndications:As thma, mild persistent One vial in nebulizer every 4 hours as needed for wheezing or cough or SOB 120 Vial 5 5 Active triamcinolone acetonide (ARISTOCORT) 0.1 % creamIndications:D ermatitis Apply topically to affected area 2 times a day as needed for Itching. To affected area. 15 g 1 6 Active Multiple Vitamins-Minerals (ONE-A-DAY WOMENS HEALTHY SKIN) [...] of Breath or Wheezing. 1 Inhaler 5 6 Active Azelastine HCl 0.1 % nasal spray USE 2 SPRAYS IN EACH NOSTRIL TWICE A DAY 90 mL 3 8 Active Cetirizine HCl 10 MG Capsule Take 1 Capsule by mouth in the morning. 9 Active Bimatoprost 0.01 % Ophthalmic Solution Instill 1 Drop into both eyes at bedtime. Active Krill Oil 1000 MG Capsule Take 1 Capsule by mouth in the morning. Active Fluticasone Propionate 50 MCG/ACT Nasal Suspension (FLONASE)Indicatio ns:Hypertrophy of both inferior nasal turbinates,Nasal sinus polyp,Chronic pansinusitis USE 2 SPRAYS IN EACH NOSTRIL TWICE A DAY 48 g 2 1 Active Famotidine 20 MG Oral Tablet Take 1 Tablet by mouth as needed for Heartburn. Active Acetaminophen 325 MG Oral Tablet (Tylenol) Take by mouth 2 Tablets every 6 hours as needed for Pain, Mild. 60 Tablet 2 Active Sennosides 8.6 MG Oral Tablet (Senokot) Take by mouth 1 Tablet in the morning AND 1 Tablet before bedtime. 90 Tablet 2 Active Premarin 0.625 MG/GM Vaginal Cream (Estrogens, Conjugated) Administer into the vagina at bedtime . As directed. 42.5 g 6 2 Active Atorvastatin Calcium 10 MG Oral Tablet (Lipitor)Indicatio ns:Hyperlipidemia with target LDL less than 70 Take 1 Tablet by mouth in the morning. 90 Tablet 3 4 Active DULoxetine HCl 60 MG Oral Capsule Delayed Release Particles (Cymbalta) Take 1 Capsule by mouth in the morning. Do not cut, crush or chew. 90 Capsule 3 4 Active Zafirlukast 20 MG Oral Tablet (Accolate) TAKE 1 TABLET TWICE A DAY ON AN EMPTY STOMACH 180 Tablet 3 4 Active predniSONE 50 MG Oral Tablet (Deltasone)Indicat ions:Cervical radicular pain,Cervical stenosis of spinal canal Take one tablet by mouth 13 hours prior to procedure. Take one tablet by mouth one hour prior to procedure. 2 Tablet 4 Active Benadryl Allergy Extra Str 50 MG Oral Tablet (diphenhydrAMINE HCl)Indications:Ce rvical radicular pain,Cervical stenosis of spinal canal Take one tablet by mouth one hour prior to procedure. 1 Tablet 4 Active Fluticasone-Salmet adelita 250-50 MCG/ACT Inhalation Aerosol Powder Breath Activated (Advair Diskus) Inhale 1 Puff by mouth in the morning and 1 Puff before bedtime. 180 Each 3 5 Active HYDROcodone-Acetam inophen 5-325 MG Oral TabletIndications: Generalized osteoarthritis Take 1 Tablet by mouth every 8 hours as needed for Pain, Severe. On going therapy 30 Tablet 5 Active Benzonatate 100 MG Oral Capsule (Tessalon Perlzain)Indications :Flu-like symptoms Take 1 Capsule by mouth 3 times a day as needed for Cough. Do not cut, crush, or chew. 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 PURE HYPERCHOLESTEROLEM 06/17/200502/2007 LOC PRIM [id number] 06/17/200507/2008 Nasal polyp 06/10/2005 04/13/2012 [facility] ALLRG [...] as of this encounter (statuses as of 01/27/2025) Immunizations Name Administration Dates Next Due COVID-19 mRNA, LNP-s, No Pre serve, 2-Dose Series ([employer]) 09/07/2021,02/04/2021,01/14/2021 COVID-19, LNP-s, No Preserve , Alexandr-sucrose, Ages 12+ (Pfizer) 06/28/2022 COVID-19, MRNA-LNP, PF, 30 M CG/0.3 mL, 12 YRS AND ABOVE, IM ([facility]) 08/07/2024,01/10/2024 H1N1 2009 Influenza, IM 03/06/2010 Influenza, Whole Virus 11/09/2000 Pneumococcal Conjugate Vacci ne, 20-valent ([id number]) 06/24/2022 Pneumococcal Polysaccharide PPV23 (Pneumovax) 06/23/2021,06/26/2009,03/20/2009(Defe rred: Patient Refused) Seasonal Influenza Vac., MDV , IM, 0.5 mL (Fluzone) 07/29/2014,08/02/2013,09/18/2012,08/20,08/21/2010,08/07/2009,10/31/20 08,09/25/2007,08/25/2006,09/09/2005,0 12/04/2002,10/25/2001 08/07/2010 Seasonal Influenza, High Dos e, Trivalent, [...] encounter Miscellaneous Notes * Telephone Encounter - Maribeth Feliciano OSA - 01/27/2025 3:23 PM EDT Patient has been notified of the message. Patient has no further questions. * Telephone Encounter - Zenaida Melendez LPN - 01/27/2025 2:41 PM EDT Attempted to call patient, there was no answer, left voicemail. When patient returns call, ok for AMY to relay message, please refer to below documentation. If needed, can transfer to dedicated nurse line. * Telephone Encounter - Lane Jaimes CRNP - 01/27/2025 2:28 PM EDT Will send a z-ryan. If no improvement with that then recommend she return to be seen. Thanks! * Telephone Encounter - Uyen Gallo MD - 01/27/2025 1:[address] Jauregui is out today, will sent the message back to the provider who saw her previously for an opinion * Telephone Encounter - Betina Obrien OSA - 01/27/2025 11:36 AM EDT When were you seen for this problem? 01/16/2025 2. What provider did you see for this problem? Lane Jaimes 3. What medications are you presently taking? predniSONE 20 MG (Finished), Oseltamivir Phosphate 75MG (Finished), Benzonatate 100 MG (Finished). Mucinex currently, Day and Nite 4. What is it that is no better? Please refer to Call Details. documented in this encounter Plan of Treatment Upcoming Encounters Date Type Department Care Team (Late st Contact Info) Description 04/01/2025 3:10 PM EDT Office Visit Family Medicine [address] [place] [phone] Uyen Adams[address] [place] [address] 04/01/2025 3:50 PM EDT Laboratory Laboratory [address] [place] [phone] [place], Lab [address] [place] [address] Scheduled Procedures Name Priority Associated Diagnoses Date/Ti [...] this encounter Medical Devices Implanted Type Area Placing Judge Device Identifier Shelf Expiration Date Model / Serial / Lot Mercedez Blue Tv Sling For Female Stress Urinary Incontinence Implanted:Qty: 1 on 02/14/2022 by Beth Washington MD at [place] [facility] [place] N/A: Pelvis [employer] 10/04/2024 [id number]-[id number] V / / [id number] documented as of this encounter Visit Diagnoses Diagnosis Bronchitis- Primary Bronchitis, not specified as acute or chronic documented in this encounter Additional Health Concerns Infection Onset Date Last Indicated Resolved Time Influenza (seasonal) 01/16/2025 01/16/2025 documented as of this encounter Advance Directives * Full Code (Latest Code Status on File) Date Activated Date Inactivated Comments 02/14/2022 1:30 PM 02/14/2022 7:19 PM This order r eflects the patients wishes and were consensually agreed upon. Care Teams Want Ad Supervisor Relationship Specialty Start Date End Date Uyen Adams DO [address] [place] [address] [place] [address] PCP - General Internal Medicine 09/19/17 documented as of this encounter
--- OUTSIDE RECORDS SUMMARY | 2025-03-07 06:44 | External Medical Summary | Summary of Care ---
Author Name Unknown Organization [facility] Address [address] [place] [address] Phone [phone] Care Team Providers Care Speed Runner Name Role Phone Uyen Adams DO Primary Care Provider Reason for Visit * Reason Onset Date Comments Advice 01/27/2025 No Better Sympto ms Encounter Details Date Type Department Care Team (Late st Contact Info) Description 01/27/2025 Telephone Family Medicine [address] [phone] Uyen Adams DO [address] [place] [address] [place] [address] Advice (No Better Symptoms) Allergies Active [...] pain 01/02/2024 Diabetes mellitus without complication 1 care home current use of therapeutic drug 2019 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 PURE HYPERCHOLESTEROLEM 06/17/200502/2007 LOC PRIM [id number] 06/17/200507/2008 Nasal polyp 06/10/2005 04/13/2012 [facility] ALLRG [...] mRNA, LNP-s, No Pre serve, 2-Dose Series ([employer] 09/07/2021,02/04/2021,01/14/2021 COVID-19, LNP-s, No Preserve , Alexandr-sucrose, Ages 12+ (Pfizer) 06/28/2022 COVID-19, MRNA-LNP, PF, 30 M CG/0.3 mL, 12 YRS AND ABOVE, IM ([facility]) 08/07/2024,01/10/2024 H1N1 2009 Influenza, IM 03/06/2010 Influenza, Whole Virus 11/09/2000 Pneumococcal Conjugate Vacci ne, 20-valent ([id number]) 06/24/2022 Pneumococcal Polysaccharide PPV23 (Pneumovax) 06/23/2021,06/26/2009,03/20/2009(Defe rred: [...] 3:10 PM EDT Office Visit Family Medicine [address] [place] [phone] Uyen Adams[address] [place] [address] 04/01/2025 3:50 PM EDT Laboratory Laboratory [address] [place] [phone] [place], Lab [address] [place] [address] Scheduled Procedures Name Priority Associated Diagnoses Date/Ti [...] this encounter Medical Devices Implanted Type Area Director Of Campus Recreation Device Identifier Shelf Expiration Date Model / Serial / Lot Mercedez Blue Tv Sling For Female Stress Urinary Incontinence Implanted:Qty: 1 on 02/14/2022 by Beth Washington MD at [place] [facility] [place] N/A: Pelvis [employer] 10/04/2024 [id number] V / / [id number] documented as of this encounter Visit Diagnoses [...] and were consensually agreed upon. Care Teams Speed Runner Relationship Specialty Start Date End Date Uyen Adams DO [address] [place] [address] [place] [address] PCP - General Internal Medicine 09/19/17 documented as of this encounter
--- OUTSIDE RECORDS SUMMARY | 2025-03-07 06:44 | External Medical Summary | Summary of Care ---
Author Name Unknown Organization [facility] Address [address] [place] [address] Phone [phone] Care Team Providers Care Vacuum Repairer Name Role Phone Uyen Adams DO Primary Care Provider Reason for Visit * Reason Onset Date Comments Advice 01/27/2025 No Better Sympto ms Encounter Details Date Type Department Care Team (Late st Contact Info) Description 01/27/2025 Telephone Family Medicine [address] [phone] Uyen Adams DO [address] [place] [address] [place] [address] Advice (No Better Symptoms) Allergies Active [...] pain 01/02/2024 Diabetes mellitus without complication 1 [facility] current use of therapeutic drug 2019 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 PURE HYPERCHOLESTEROLEM 06/17/200502/2007 LOC PRIM [id number] 06/17/200507/2008 Nasal polyp 06/10/2005 04/13/2012 [facility] ALLRG [...] mRNA, LNP-s, No Pre serve, 2-Dose Series ([place]) 09/07/2021,02/04/2021,01/14/2021 COVID-19, LNP-s, No Preserve , Alexandr-sucrose, Ages 12+ (Pfizer) 06/28/2022 COVID-19, MRNA-LNP, PF, 30 M CG/0.3 mL, 12 YRS AND ABOVE, IM ([facility]) 08/07/2024,01/10/2024 H1N1 2009 Influenza, IM 03/06/2010 Influenza, Whole Virus 11/09/2000 Pneumococcal Conjugate Vacci ne, 20-valent ([id number]) 06/24/2022 Pneumococcal Polysaccharide PPV23 (Pneumovax) 06/23/2021,06/26/2009,03/20/2009(Defe rred: [...] 3:10 PM EDT Office Visit Family Medicine [address] [place] [phone] Uyen Adams[address] [place] [address] 04/01/2025 3:50 PM EDT Laboratory Laboratory [address] [place] [phone] [place], Lab [address] [place] [address] Scheduled Procedures Name Priority Associated Diagnoses Date/Ti [...] this encounter Medical Devices Implanted Type Area Appointment Scheduler Device Identifier Shelf Expiration Date Model / Serial / Lot Mercedez Blue Tv Sling For Female Stress Urinary Incontinence Implanted:Qty: 1 on 02/14/2022 by Beth Washington MD at OR [facility] N/A: Pelvis [employer] 10/04/2024 [id number] / / [id number] documented as of this encounter Visit Diagnoses [...] and were consensually agreed upon. Care Teams Vacuum Repairer Relationship Specialty Start Date End Date Uyen Adams DO [address] [place] [address] [place] [address] PCP - General Internal Medicine 09/19/17 documented as of this encounter
--- OUTSIDE RECORDS SUMMARY | 2025-03-07 06:45 | External Medical Summary | Summary of Care ---
Author Name Unknown Organization [facility] Address [address] [place] [address] Phone [phone] Care Team Providers Care Tree Surgeon Name Role Phone Mimi Raymundo DO Primary Care Provider [phone] Reason for Referral * Medication Prior Authorization - Closed Specialty Diagnoses / Procedures Referred By Contson t Referred To Contact Diagnoses Generalized osteoarthritis Mimi Raymundo DO [address] [place] [address] [place] [id number] Phone: tel: fax: Referral ID Status Reason Start Date Expiration Date Visits Re quested Visits Authorized [id number] Closed 027 123 Reason for Visit * Reason Onset Date Comments Medication Refill 01/08/2025 Encounter Details Date Type Department Care Team (Late st Contact Info) Description 01/08/2025 Refill Family Medicine [address] [place] [phone] Mimi Raymundo DO [address] [place] [address] [place] [id number] Generalized osteoarthritis Allergies Active Allergy Reactions Criticality Noted Date Comments Salicylates 06/10/2005 asthma Ivp Dye 02/17/2003 itching and rash Levofloxacin Hemihydrate 03/16/2001 itching Vegetable Enzyme 06/10/2005 itching documented as of this encounter (statuses as of 01/09/2025) Medications NASAL SALINE 0.65 % NA SOLNIndications:Ot [...] morning. 90 Tablet 3 06/20/20 24 Active methylPREDNISolone 4 MG Oral Tablet Therapy Pack (Medrol Dosepack) follow package directions 21 Tablet 09/05/20 24 Active Additional Information Patient not taking.Reported on 11/06/2024 DULoxetine HCl 60 MG Oral Capsule Delayed [...] bedtime. 180 Each 3 12/03/19 25 Active HYDROcodone-Acetam inophen 5-325 MG Oral TabletIndications: Generalized osteoarthritis Take 1 Tablet by mouth every 8 hours as needed for Pain, Severe. On going therapy 30 Tablet 01/09/20 25 Active HYDROcodone-Acetam inophen 5-325 MG Oral TabletIndications: Generalized osteoarthritis Take 1 Tablet by mouth every 8 hours as needed for Pain, Severe. 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 PURE HYPERCHOLESTEROLEM 06/17/2005 120 02/2007 LOC PRIM [id number] 06/17/2005 05/0 07/2008 Nasal polyp 06/10/2005 04/13/2012 [facility] ALLRG CONJUNCTIV [...] as of this encounter (statuses as of 01/09/2025) Immunizations Name Administration Dates Next Due COVID-19 mRNA, LNP-s, No Pre serve, 2-Dose Series ([employer]iceLabs) 09/07/2021,02/04/2021,01/14/2021 COVID-19, LNP-s, No Preserve , Alexandr-sucrose, Ages 12+ (Pfizer) 06/28/2022 COVID-19, MRNA-LNP, PF, 30 M CG/0.3 mL, 12 YRS AND ABOVE, IM (PFIZER-Comirnat) 08/07/2024,01/10/2024 H1N1 2009 Influenza, IM 03/06/2010 Pneumococcal Conjugate Vacci ne, 20-valent ([id number]) 06/24/2022 Pneumococcal Polysaccharide PPV23 (Pneumovax) 06/23/2021,06/26/2009,03/20/2009(Defe rred: [...] Telephone Encounter - Mimi Raymundo DO - 01/09/2025 2:39 PM ESTSigned Prescriptions: Disp Refills HYDROcodone-Acetaminophen 5-325 MG Oral Ta*30 Tab*0 Sig: Take 1 Tablet by mouth every 8 hours as needed for Pain, Severe. On going therapy Authorizing Provider: MIMI RAYMUNDO * Telephone Encounter - Isabelle Glover [facility] - 01/09/2025 2:37 PM ESTPending Prescriptions: Disp Refills HYDROcodone-Acetaminophen 5-325 MG Oral Ta*30 Tab*0 Sig: Take 1 Tablet by mouth every 8 hours as needed for Pain, Severe. On going therapy * Telephone Encounter - Isabelle Glover [facility] - 01/09/2025 2:36 PM EST I have reviewed the patient’s controlled substance dispensing history in the Prescription Drug Monitoring Program in compliance with the [facility] regulations before prescribing a controlled substance. PDMP checked on 01/09/2025. Pending Prescriptions: Disp Refills HYDROcodone-Acetaminophen 5-325 MG Oral T*30 Tab*0 Sig: Take 1 Tablet by mouth every 8 hours as needed for Pain, Severe. On going therapy Last Visit: 08/07/2024 (in office), Visit date not found (telemedicine) Next Visit: 01/10/2025 Date medication was last filled: 12/04/24 Date medication is due for refill: 12/13/24 [facility] [address] [place] Is this request for a controlled substance? Yes and Urine Drug Screen was completed Toxicology results: Results for orders placed or performed in visit on 08/07/24 PAIN MANAGEMENT DRUG PANEL, URINE W/ INTERPRETATION Result Value Pain Management Interpretation Based on the medication information provided and from [facility]: The presence of hydrocodone, dihydrocodeine and hydromorphone is CONSISTENT with hydrocodone use asprescribed in [facility]. Amphetamines Screen, U Negative Benzodiazepines Screen, [...] Results Review. Please approve if appropriate. Thanks, Isabelle Glover, PharmD Clinical Pharmacist [facility] [phone] 01/09/2025 2:36 PM * Telephone Encounter - Moses Miramontes, corporate recruiter - 01/08/2025 3:53 PM EST Did you pend patient's preferred pharmacy and medication before forwarding?yes [facility], [address] [place] Pending Prescriptions: Disp Refills HYDROcodone-Acetaminophen 5-325 MG Oral T*30 Tab*0 Sig: Take 1 Tablet by mouth every 8 hours as needed for Pain, Severe. On going therapy Last Visit: 08/07/2024 (in office), Visit date not found (telemedicine) Next Visit: 01/10/2025 If no future appointments scheduled, and last appointment is greater than a year ago, please schedule patient for a follow-up appointment Last date the medication was ordered: 12/04/2024 Is this request for a controlled substance?Yes, What was the last refill date 12/04/2024 w/ [id number] and dosage 5-325 and Urine Drug Screen was completed Urine Drug Screen: Results for orders placed or performed in visit on 08/07/24 PAIN MANAGEMENT DRUG PANEL, URINE W/ INTERPRETATION Result Value Pain Management Interpretation Based on the medication information provided and from [facility]: The presence of hydrocodone, dihydrocodeine and hydromorphone is CONSISTENT with hydrocodone use asprescribed in [facility]. Amphetamines Screen, U Negative Benzodiazepines Screen, [...] SCREEN, URINE, W/ CONFIRMATION Result Value Amphetamine NEGATIVE Barbiturates NEGATIVE Benzodiazepines NEGATIVE THC-COOH Confirmation, U NEGATIVE Cocaine Metabolite NEGATIVE Morphine / Codeine POSITIVE (A) METHADONE METABOLITE NEGATIVE OXYCODONE NEGATIVE TOX COMMENT SCREENING RESULTS ARE PRESUMPTIVE [...] AM HGBA1C 6.4 (H) 06/09/2020 03:44 PM documented in this encounter Plan of Treatment Upcoming Encounters Date Type Department Care Team (Late st Contact Info) Description 01/10/2025 8:00 AM EST Office Visit Family Medicine [address] [place] [id number] [place] [address] 04/01/2025 3:10 PM EDT Office Visit [address] [place] [phone] Mimi Raymundo [address] [place] [id number] 04/01/2025 3:50 PM EDT Laboratory Laboratory [address] [place] [phone] [facility] [address] [place] [id number] Scheduled Procedures Name Priority Associated Diagnoses Date/Ti [...] 02/04/2025 08/07/2024, 12/21, 06/27/2023, Additional history exists Diabetic Eye Exam 05/30/2025 05/30/2024, , 05/30/2024, Additional history exists GFR 08/07/2025 08/07/2024, 06/2023, 05/16/2023, Additional history exists Mammogram 11/06/2025 11/06/2024, 10/20, 11/02/2023, Additional history exists Colonoscopy 04/06/2028 04/06/2023, 03/20, 11/08/2019, Additional history exists Colorectal Cancer Screening 04/06/2028 DXA Scan 06/23/2028 06/23/2021, 01/17/2011 Lipid Panel 08/07/2029 08/07/2024, 06/2023, 12/23/2022, Additional history exists Zoster Vaccines [...] this encounter Medical Devices Implanted Type Area Intraoperative Neuro Tech Device Identifier Shelf Expiration Date Model / Serial / Lot Mer[employer] Blue Tv Sling For Female Stress Urinary Incontinence Implanted:Qty: 1 on 02/14/2022 by Beth Washington MD at [place] [facility] [place]A: [employer] 10/04/2024 [id number] / / [id number] documented as of this encounter Visit Diagnoses Diagnosis Generalized osteoarthritis Generalized osteoarthrosis, unspecified site documented in this encounter Advance Directives * Full Code (Latest Code Status on File) Date Activated Date Inactivated Comments 02/14/2022 1:30 PM 02/14/2022 7:19 PM This order r eflects the patients wishes and were consensually agreed upon. Care Teams Tree Surgeon Relationship Specialty Start Date End Date Mimi Raymundo DO [address] [place] [address] [place] [phone] PCP - General Internal Medicine 09/19/17 documented as of this encounter
--- OUTSIDE RECORDS SUMMARY | 2025-03-07 06:45 | External Medical Summary | Summary of Care ---
Author Name Unknown Organization [facility] Address [address] [place] [address] Phone [phone] Care Team Providers Care Glue Spreading Machine Operator Name Role Phone Uyen Adams Primary Care Provider [phone] Reason for Visit * Reason Comments Pre-op Clearance Encounter Details Date Type Department Care Team (Late st Contact Info) Description 01/10/2025 8:00 AM EST Office Visit Family Medicine [address] [phone] [place] [address] Preop examination*; Hyperlipidemia with target LDL less than 70; Type 2 diabetes mellitus with hemoglobin A1c goal of less than 7.0% ([facility]); Mild persistent asthma without complication Allergies Active Allergy Reactions Criticality Noted Date Comments Salicylates 06/10/2005 asthma Ivp Dye 02/17/2003 itching and rash Levofloxacin Hemihydrate 03/16/2001 itching Vegetable Enzyme 06/10/2005 itching documented as of this encounter (statuses as of 01/10/2025) Medications NASAL SALINE 0.65 % NA SOLNIndications:Ot [...] going therapy 30 Tablet 01/09/20 25 Active methylPREDNISolone 4 MG Oral Tablet Therapy Pack (Medrol Dosepack) follow package directions 21 Tablet 09/05/20 24 025 Discontin ued(Medic ation List Clean Up) documented as of this encounter (statuses as of 01/10/2025) Active Problems Problem Noted Date Diagnosed Date Bilateral hip pain 01/02/2024 Diabetes mellitus without complication 1 MCC current use of therapeutic drug 2019 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 PURE HYPERCHOLESTEROLEM 06/17/200502/2007 LOC PRIM [id number] 06/17/200507/2008 Nasal polyp 06/10/2005 04/13/2012 CHR ALLRG [...] as of this encounter (statuses as of 01/10/2025) Immunizations Name Administration Dates Next Due COVID-19 mRNA, LNP-s, No Pre serve, 2-Dose Series (Oktogo) 09/07/2021,02/04/2021,01/14/2021 COVID-19, LNP-s, No Preserve , Alexandr-sucrose, Ages 12+ (Pfizer) 06/28/2022 COVID-19, MRNA-LNP, PF, 30 M CG/0.3 mL, 12 YRS AND ABOVE, IM (PFIZER-Comirnat) 08/07/2024,01/10/2024 H1N1 2009 Influenza, IM 03/06/2010 Influenza, Whole Virus 11/09/2000 Pneumococcal Conjugate Vacci ne, 20-valent ([id number]) 06/24/2022 Pneumococcal Polysaccharide PPV23 (Pneumovax) 06/23/2021,06/26/2009,03/20/2009(Defe rred: [...] Date Smoking Tobacco: Never Smokeless Tobacco: Never Tobacco Cessation:Counseling Given: Not Answered Comments:no passive smoke exposures Alcohol Use Standard Drinks/Week Comments Yes 0 [...] on file documented as of this encounter Last Filed Vital Signs Vital Sign Reading Time Taken Comments Blood Pressure 122/74 01/10/2025 7:59 AM EST Pulse 68 01/10/2025 7:59 AM EST Temperature 35.9 °C (96.7 °F) 01/10/2025 7:59 AM ES T Respiratory Rate 16 01/10/2025 7:59 AM EST Oxygen Saturation 97% 01/10/2025 7:59 AM EST Inhaled Oxygen Concentration - - Weight 59.9 kg (132 lb) 01/10/2025 7:59 AM EST Height 152.4 cm (5') 01/10/2025 7:59 AM EST Body Mass Index 25.78 01/10/2025 7:59 AM EST documented in this encounter Progress Notes * Lane Jaimes CRNP - 01/10/2025 8:13 AM EST Images from the original note were not included. Pre-Operative Medical Evaluation Procedure Information Type of Surgery: C5 Corpectomy Anterior Cervical Discectomy and Fusion C4 to C6 Referring Physician / Surgeon: Dr. Genao Date of procedure: 01/20/2025 Brief History of Present Illness: Past medical hx of DM II, HLD, GERD, asthma, OA. DM II not currently on any antidiabetic agents. Had labs at [facility] and A1C was 6.4. Asthma/allergies using Advair for maintenance and albuterol for rescue. Uses flonase and azelastinenasal spray. Takes Zyrtect daily. Breathing has been good. HLD is on atorvastatin. Last lipid panel in July LDL was 72 / well controlled. Not on any blood thinners. Denies any chest pain, SOB, syncope, dizziness, or leg swelling. 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, mild stage () History of colon polyps (10/04/2019) Nasal sinus polyp (05/13/2019) Hypertrophy of both inferior nasal turbinates (05/13/2019) Sensorineural hearing loss (SNHL) of both ears (05/13/2019) Hyposmia (05/13/2019) Prediabetes (09/19/2017) Lymphedema of left lower extremity (09/19/2017) Type 2 diabetes mellitus with hemoglobin A1c goal of less than 7.0% (HCC) (03/22/2017) Generalized osteoarthritis (01/10/2017) Bilateral primary osteoarthritis of knee (09/12/2016) MEDICATION USE AGREEMENT (01/18/2014) History of cervical cancer (04/20/2013) Stress incontinence, female (09/18/2012) Allergic rhinitis (04/13/2012) Allergic conjunctivitis (04/13/2012) Chronic sinusitis (04/13/2012) Nasal sinus polyp (04/13/2012) GERD (gastroesophageal reflux disease) (04/13/2012) Asthma, mild persistent (04/13/2012) Osteoarthritis, knee (03/08/2012) Asthma, moderate persistent (08/12/2010) Primary localized osteoarthrosis of pelvic region or thigh (2009) Hyperlipidemia with target LDL less than 70 (12/18/2009) Dyslipidemia, goal to be determined (10/27/2009) Anxiety state (03/31/2007) Mixed dyslipidemia (10/27/2006) EXTRINSIC ASTHMA, MODERATE PERSISTENT (07/01/2006) ADVANCE DIRECTIVE INFORMATION (07/29/2005) PURE HYPERCHOLESTEROLEM (06/17/2005) LOC PRIM [id number] (06/17/2005) Nasal polyp (06/10/2005) CHR ALLRG CONJUNCTIV NEC (06/10/2005) Other chronic sinusitis (03/22/2003) Other lymphedema (02/17/2003) ABN PAP SMEAR-CERVIX (12/13/2002) MAL GONZÁLEZ CERVIX UTERI NOS (12/13/2002) Other allergic rhinitis Cancer of cervix (HCC) Need for prophylactic hormone replacement therapy (postmenopausal) CALCIF TENDINITIS SHLDER Esophageal reflux Localized osteoarthrosis, lower leg Impaired fasting glucose Spinal stenosis of lumbar region without neurogenic claudication Degeneration of lumbosacral intervertebral disc Atrophic vaginitis Tubular adenoma of colon Current Medications HYDROcodone-Acetaminophen 5-325 MG Oral Tablet, 1 Tablet, Oral, Q8H PRN Fluticasone-Salmeterol 250-50 MCG/ACT Inhalation Aerosol Powder Breath Activated (Advair Diskus), 1Puff, Inhalation, BID(AM/PM) Benadryl Allergy Extra Str 50 MG Oral Tablet (diphenhydrAMINE HCl), Take one tablet by mouth one hour prior to procedure. predniSONE 50 MG Oral Tablet (Deltasone), Take one tablet by mouth 13 hours prior to procedure. Take one tablet by mouth one hour prior to procedure. Zafirlukast 20 MG Oral Tablet (Accolate), TAKE 1 TABLET TWICE A DAY ON AN EMPTY STOMACH DULoxetine HCl 60 MG Oral Capsule Delayed Release Particles (Cymbalta), 60 mg, Oral, Daily(AM) methylPREDNISolone 4 MG Oral Tablet Therapy Pack (Medrol Dosepack), follow package directions (Patient not taking: Reported on 11/06/2024) Atorvastatin Calcium 10 MG Oral Tablet (Lipitor), 10 mg, Oral, Daily(AM) Premarin 0.625 MG/GM Vaginal Cream (Estrogens, Conjugated), Administer into the vagina at bedtime .As directed. Acetaminophen 325 MG Oral Tablet (Tylenol), 650 mg, Oral, Q6H PRN Sennosides 8.6 MG Oral Tablet (Senokot), 1 Tablet, Oral, BID(AM/PM) Famotidine 20 MG Oral Tablet, 20 mg, Oral, PRN Fluticasone Propionate 50 MCG/ACT Nasal Suspension (FLONASE), USE 2 SPRAYS IN EACH NOSTRIL TWICE A DAY Krill Oil 1000 MG Capsule, 1 Capsule, Oral, Daily(AM) Bimatoprost 0.01 % Ophthalmic Solution, 1 Drop, Both eyes, HS Cetirizine HCl 10 MG Capsule, 10 mg, Oral, Daily(AM) Azelastine HCl 0.1 % nasal spray, USE 2 SPRAYS IN EACH NOSTRIL TWICE A DAY albuterol (PROAIR HFA) 108 (90 BASE) MCG/ACT inhaler, 2 Puff, Inhalation, Q4H PRN Calcium Carb-Cholecalciferol (CALCIUM + D3) 600-200 MG-UNIT per tablet, 1 Tablet, Oral, Daily(AM) Cholecalciferol (VITAMIN D3) 5000 UNITS Tablet, 5,000 Units, Oral, Daily(AM) Coenzyme Q10 (CO Q 10) 100 MG CAPS, 1 Capsule, Oral, Daily(AM) Cyanocobalamin (VITAMIN B-12) 1000 MCG Tablet, 1,000 mcg, Oral, Daily(AM) Misc Natural Products (GLUCOSAMINE CHONDROITIN COMPLX) TABS, 1 Tablet, Oral, BID(AM/PM) Multiple Vitamins-Minerals (ONE-A-DAY WOMENS HEALTHY SKIN) TABS, 1 Tablet, Oral, Daily(AM) triamcinolone acetonide (ARISTOCORT) 0.1 % cream, Apply topically to affected area 2 times a day asneeded for Itching. To affected area. ALBUTEROL SULFATE (2.5 MG/3ML) 0.083% IN NEBU, One vial in nebulizer every 4 hours as needed for wheezing or cough or SOB TOPICORT 0.25 % EX CREA, apply to rash twice a day x 14 days ZADITOR 0.025 % OP SOLN, one drop each eye every 8-12 hrs for eye itching NASAL SALINE 0.65 % NA SOLN, 2 squirts each nostril morning and night and every 2-4 hrs as needed for nasal dryness or congestion Allergies: Asa [salicylates], Ivp dye, Levofloxacin hemihydrate, and Vegetable enzyme Past Medical History: has a past medical history of Abnormal Papanicolaou smear of cervix and cervical HPV (12/13/2002), Allergic rhinitis due to other allergen, Asthma, severity to be determined, Atrophic vaginitis, Calcifying tendinitis of shoulder, Cancer of cervix ([facility]) (1991), Degeneration of lumbosacral intervertebral disc, Dyslipidemia, goal LDL below 130 (12/18/2009), Esophageal reflux, Female stress incontinence (09/18/2012), Generalized osteoarthritis (01/10/2017), History of cervical cancer (04/20/2013), Impaired fasting glucose (10/29/07), Localized osteoarthrosis, lower leg, Lymphedema of left lower extremity (09/19/2017), MEDICATION USE AGREEMENT (01/18/2014), Mixed dyslipidemia, Nasal polyp, Need for prophylactic hormone replacement therapy (postmenopausal), Osteoarthritis, knee (03/08/2012), Other lymphedema (2001), Primary localized osteoarthrosis of pelvic region or thigh (07/16/2010), Primary localized osteoarthrosis, lower leg (06/17/2005), Primary osteoarthritis of both knees (09/12/2016), Spinal stenosis of lumbar region without neurogenic claudication (01/18/10), Tubular adenoma of colon, and Type 2 diabetes mellitus with hemoglobin A1c goal of less than 7.0% ([facility]) (03/22/2017). Past Surgical History: has a past surgical history that includes Total Abd Hysterectomy w/wo Removal of Tube(s) (1991); removal of ovary/oviduct(s) (1991); colposcopy vagina & or cervix (07/2003); intranasal biopsy (2003); repair of nasal septum (2003); sinus surgery procedure nec (2003); Colonoscopy, GI Referral OP (05/14/2006); lumbar spine fusion w/bone graft (06/18/2014); Colonoscopy, Diagnostic (Rectum) (2015); Colonoscopy, Diagnostic (Rectum) (11/08/2019); repair bladder defect (N/A, 02/14/2022); cystoscopy (N/A, 02/14/2022); and Colonoscopy, Diagnostic (Rectum) (04/06/2023). Social History: reports that she has never smoked. She has never used smokeless tobacco. She reports current alcohol use. She reports that she does not use drugs. Family History: family history includes Allergies in her aunt (unspecified) and father; Asthma in her aunt (unspecified). Anesthesia History Anesthesia reaction: Has had N/V and hypothermia associated with post anesthesia. History of surgical complications: None Personal history of venous thromboembolic disease: No hx of blood clots. Physical Exam Vitals: 01/10/25 0759 Temp: 96.7 °F (35.9 °C) Pulse: 68 Resp: 16 SpO2: 97% BP: 122/74 BMI: 25.78 General: A&Ox3 and no distress Oropharynx: no exudate, no erythema, lips, buccal mucosa, and tongue normal, mucous membranes are moist, and dentition normal Neck: supple, no adenopathy, no bruits, thyroid normal size, non-tender, without nodularity Heart: regular rate & rhythm, no murmur, no gallops, S-1 normal, and S-2 normal Lungs: normal respiratory rate and effort, lungs clear to auscultation Extremities: no edema Skin: warm and dry Labs reviewed and are significant for: CBC, BMP, A1C, PT/INR, UA from [facility] reviewed and unremarkable. EKG by my review is significant for: EKG interpretation NSR rate of 69 bpm. Surgical Risk Scoring Revised Cardiac Risk Index (RCRI) High-risk type of surgery (examples include vascular and any open intraperitoneal or intrathoracic procedures): 1=Yes History of ischemic heart disease (history of myocardial infarction or positive exercise test, current compliant of chest pain considered to be secondary to myocardia ischemia, use of nitrate therapy, or ECG with pathological Q waves; do not count prior coronary revascularization procedure unless one of the other criteria for ischemic heart disease is present): 0=No History of heart failure: 0=No History of cerebrovascular disease: 0=No Diabetes mellitus requiring treatment with insulin: 0=No Preoperative serum creatinine >2.0 mg/dL (177 micromol/L): 0=No Pt has revised cardiac index score of: One Risk Factor- 1.0% (95% CI: 0.5-1.4) Assessment and Plan Preop examination -Chronic conditions stable at this time, RCRI score 1, VSS, and patient is an acceptable risk for surgery. Hyperlipidemia with target LDL less than 70 - well controlled Type 2 diabetes mellitus with hemoglobin A1c goal of less than 7.0% (HCC) - well controlled with diet and lifestyle Mild persistent asthma without complication - well controlled Medication adjustments: As recommended by surgeon. Additional consults or testing: None Follow Up: Return if symptoms worsen or fail to improve. Cosigned by Ana Andre MD at 01/10/2025 9:34 AM EST documented in this encounter Nursing Notes * Zenaida Melendez LPN - 01/10/2025 9:53 AM EST Preop visit and form faxed to [facility]. * Zenaida Melendez LPN - 01/10/2025 7:59 AM EST Preop clearance for C5 Corpectomy anterior cervical discectomy and fusion C4 to C6 by Dr. Genao 01/20 Had preop EKG and labs done at [facility] on Monday. documented in this encounter Plan of Treatment Upcoming Encounters Date Type Department Care Team (Late st Contact Info) Description 04/01/2025 3:10 PM EDT Office Visit Family Medicine [address] [place] [phone] Uy[address] [place] [address] 04/01/2025 3:50 PM EDT Laboratory Laboratory [address] [place] [phone] [place] [address] Scheduled Procedures Name Priority Associated Diagnoses Date/Ti [...] 05/30/2024, Additional history exists GFR 08/07/2025 08/07/2024, 08/0 [...] this encounter Medical Devices Implanted Type Area Asphalt Coater Device Identifier Shelf Expiration Date Model / Serial / Lot Desara Blue Tv Sling For Female Stress Urinary Incontinence Implanted:Qty: 1 on 02/14/2022 by Beth Washington MD at OR [facility] N/A: Pelvis [employer] 10/04/2024 [id number] / / [id number] documented as of this encounter Visit Diagnoses Diagnosis Preop examination- Primary Preoperative examination, unspecified Hyperlipidemia with target LDL less than 70 Other and unspecified hyperlipidemia Type 2 diabetes mellitus with hemoglobin A1c goal of less than 7.0% (HCC) Mild persistent asthma without complication Unspecified asthma documented in this encounter Advance Directives * Full Code (Latest Code Status on File) Date Activated Date Inactivated Comments 02/14/2022 1:30 PM 02/14/2022 7:19 PM This order r eflects the patients wishes and were consensually agreed upon. Care Teams Glue Spreading Machine Operator Relationship Specialty Start Date End Date Uyen Adams DO [address] [place] [address] [place] [id number] PCP - General Internal Medicine 09/19/17 documented as of this encounter
--- OUTSIDE RECORDS SUMMARY | 2025-03-07 06:45 | External Medical Summary | Summary of Care ---
Author Name Unknown Organization [facility] Address [address] [place] [address] Phone [phone] Care Team Providers Care Die Cast Supervisor Name Role Phone Uyen Adams Primary Care Provider [phone] Reason for Visit * Reason Comments Pre-op Clearance Encounter Details Date Type Department Care Team (Late st Contact Info) Description 01/10/2025 8:00 AM EST Office Visit Family Medicine [address] [phone] [place] [address] Preop examination*; Hyperlipidemia with target LDL less than 70; Type 2 diabetes mellitus with hemoglobin A1c goal of less than 7.0% ([facility]); Mild persistent asthma without complication Allergies Active [...] pain 01/02/2024 Diabetes mellitus without complication 1 long-term current use of therapeutic drug 2019 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 PURE HYPERCHOLESTEROLEM 06/17/200502/2007 LOC PRIM [id number] 06/17/200507/2008 Nasal polyp 06/10/2005 04/13/2012 CHR ALLRG [...] mRNA, LNP-s, No Pre serve, 2-Dose Series ([email or web address]) 09/07/2021,02/04/2021,01/14/2021 COVID-19, LNP-s, No Preserve , Alexandr-sucrose, Ages 12+ (Pfizer) 06/28/2022 COVID-19, MRNA-LNP, PF, 30 M CG/0.3 mL, 12 YRS AND ABOVE, IM (PFIZER-Comirnat) 08/07/2024,01/10/2024 H1N1 2009 Influenza, IM 03/06/2010 Pneumococcal Conjugate Vacci ne, 20-valent ([id number]) 06/24/2022 Pneumococcal Polysaccharide PPV23 (Pneumovax) 06/23/2021,06/26/2009,03/20/2009(Defe rred: [...] 7:59 AM EST documented in this encounter Nursing Notes * Zenaida Melendez LPN - 01/10/2025 7:59 AM EST Preop clearance for C5 Corpectomy anterior cervical discectomy and fusion C4 to C6 by Dr. Genao / Had preop EKG and labs done at [facility] on Monday. documented in this encounter Plan of Treatment Upcoming Encounters Date Type Department Care Team (Late st Contact Info) Description 04/01/2025 3:10 PM EDT Office Visit Family Medicine [address] [place] [phone] [place] [address] 04/01/2025 3:50 PM EDT Laboratory Laboratory [address] [place] [phone] [place] [address] Scheduled Procedures Name Priority Associated Diagnoses Date/Ti [...] this encounter Medical Devices Implanted Type Area Slot Floorman Device Identifier Shelf Expiration Date Model / Serial / Lot Desara Blue Tv Sling For Female Stress Urinary Incontinence Implanted:Qty: 1 on 02/14/2022 by Beth Washington MD [place] [facility] [place]/A: Pelvis [employer] 10/04/2024 [id number] / / [id number] documented as of this encounter Visit Diagnoses [...] and were consensually agreed upon. Care Teams Die Cast Supervisor Relationship Specialty Start Date End Date Uyen Adams DO [address] [place] [address] [place] [address] PCP - General Internal Medicine 09/19/17 documented as of this encounter
--- OUTSIDE RECORDS SUMMARY | 2025-03-07 06:45 | External Medical Summary | Summary of Care ---
Author Name Unknown Organization [facility] Address [address] [place] [address] Phone [phone] Care Team Providers Care Engineering Specialist Name Role Phone Uyen Adams Primary Care Provider Reason for Visit * Reason Comments Acute Encounter Details Date Type Department Care Team (Late st Contact Info) Description 01/16/2025 9:40 AM EST Office Visit Family Medicine [address] [phone] [address] Jaimes [address] [place] [address] Flu-like symptoms* Allergies Active Allergy Reactions Criticality Noted Date Comments Salicylates 06/10/2005 asthma Ivp Dye 02/17/2003 itching and rash Levofloxacin Hemihydrate 03/16/2001 itching Vegetable Enzyme 06/10/2005 itching documented as of this encounter (statuses as of 01/16/2025) Medications NASAL SALINE 0.65 % NA SOLNIndications:O ther chronic sinusitis 2 squirts each nostril morning and night and every 2-4 hrs as needed for nasal dryness or congestion 1 0 06/10/20 05 Active ZADITOR 0.025 % OP SOLNIndications:A llergic conjunctivitis one drop each eye every 8-12 hrs for eye itching 1 Bottle 5 05/03/20 13 Active TOPICORT 0.25 % EX CREAIndications:D ermatitis apply to rash twice a day x 14 days 15 g 1 04/22/20 14 Active ALBUTEROL SULFATE (2.5 MG/3ML) 0.083% IN NEBUIndications:A sthma, mild persistent One vial in nebulizer every 4 hours as needed for wheezing or cough or SOB 120 Vial 5 12/02/19 15 Active triamcinolone acetonide (ARISTOCORT) 0.1 % creamIndications: Dermatitis Apply topically to affected area 2 times a day as needed for Itching. To affected area. 15 g 1 05/11/20 16 Active Multiple Vitamins-Minerals (ONE-A-DAY WOMENS HEALTHY SKIN) TABS Take 1 Tab by mouth daily. Active Misc Natural Products (GLUCOSAMINE CHONDROITIN COMPLX) TABS Take 1 Tablet by mouth in the morning and 1 Tablet before bedtime. Active Calcium Carb-Cholecalcife rol (CALCIUM + D3) 600-200 MG-UNIT per tabletIndications :takes at night Take 1 Tablet by mouth in the morning. Active Cyanocobalamin (VITAMIN B-12) 1000 MCG Tablet Take 1 Tablet by mouth in the morning. Active Coenzyme Q10 (CO Q 10) 100 MG CAPS Take 1 Cap by mouth daily. Active Cholecalciferol (VITAMIN D3) 5000 UNITS TabletIndications :takes in the evening Take 1 Tablet by [...] Active Fluticasone Propionate 50 MCG/ACT Nasal Suspension (FLONASE)Indicati ons:Hypertrophy of both inferior nasal turbinates,Nasal sinus polyp,Chronic [...] Active Atorvastatin Calcium 10 MG Oral Tablet (Lipitor)Indicati ons:Hyperlipidemi a with target LDL less than 70 Take [...] 24 Active predniSONE 50 MG Oral Tablet (Deltasone)Indica tions:Cervical radicular pain,Cervical stenosis of spinal canal Take one tablet by mouth 13 hours prior to procedure. Take one tablet by mouth one hour prior to procedure. 2 Tablet 11/07/20 24 Active Benadryl Allergy Extra Str 50 MG Oral Tablet (diphenhydrAMINE HCl)Indications:C ervical radicular pain,Cervical stenosis of spinal canal Take one tablet by mouth one hour prior to procedure. 1 Tablet 11/07/20 24 Active Fluticasone-Salme terol 250-50 MCG/ACT Inhalation Aerosol Powder Breath Activated (Advair Diskus) Inhale 1 Puff by mouth in the morning and 1 Puff before bedtime. 180 Each 3 12/03/19 25 Active HYDROcodone-Aceta minophen 5-325 MG Oral TabletIndications :Generalized osteoarthritis Take 1 Tablet by mouth every 8 hours as needed for Pain, Severe. On going therapy 30 Tablet 01/09/20 25 Active predniSONE 20 MG Oral Tablet (Deltasone)Indica tions:Flu-like symptoms Take 2 Tablets by mouth in the morning for 5 days. 10 Tablet 01/16/20 25 2024 Active Benzonatate 100 MG Oral Capsule (Tessalon Perles)Indication s:Flu-like symptoms Take 1 Capsule by mouth 3 times a day as needed for Cough. Do not cut, crush, or chew. 21 Capsule 01/16/20 Active Oseltamivir Phosphate 75 MG Oral Capsule (Tamiflu)Indicati ons:Flu-like symptoms Take 1 Capsule by mouth in the morning and 1 Capsule before bedtime. Do all this for 5 days. For 5 days.. 10 Capsule 01/16/20 25 2024 Active Oseltamivir Phosphate 30 MG Oral Capsule (Tamiflu)Indicati ons:Flu-like symptoms Take 1 Capsule by mouth in the morning and 1 Capsule before bedtime. Do all this for 5 days. For 5 days.. 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 PURE HYPERCHOLESTEROLEM 06/17/200502/2007 LOC PRIM DXOLNIAZ-X-MTE 06/17/200507/2008 Nasal polyp 06/10/2005 04/13/2012 CHR ALLRG [...] as of this encounter (statuses as of 01/16/2025) Immunizations Name Administration Dates Next Due COVID-19 mRNA, LNP-s, No Pre serve, 2-Dose Series (LiquidText) 09/07/2021,02/04/2021,01/14/2021 COVID-19, LNP-s, No Preserve , Alexandr-sucrose, Ages 12+ (Pfizer) 06/28/2022 COVID-19, MRNA-LNP, PF, 30 M CG/0.3 mL, 12 YRS AND ABOVE, IM (PFIZER-Comirnaty) 08/07/2024,01/10/2024 H1N1 2009 Influenza, IM 03/06/2010 Pneumococcal Conjugate Vacci ne, 20-valent ([id number]) 06/24/2022 Pneumococcal Polysaccharide PPV23 (Pneumovax) 06/23/2021,06/26/2009,03/20/2009(Defe rred: [...] Sign Reading Time Taken Comments Blood Pressure 142/56 01/16/2025 9:48 AM EST Pulse 86 01/16/2025 9:48 AM EST Temperature 36.7 °C (98 °F) 01/16/2025 9:48 AM EST Respiratory Rate 16 01/16/2025 9:48 AM EST Oxygen Saturation 97% 01/16/2025 9:48 AM EST Inhaled Oxygen Concentration - - Weight 59.9 kg (132 lb) 01/16/2025 9:48 AM EST Height - - Body Mass Index 25.78 01/10/2025 7:59 AM EST documented in this encounter Progress Notes * Lane Jaimes CRNP - 01/16/2025 9:49 AM EST Images from the original note were not included. History of Present Illness Chanda Nolasco is a 69 year old female that presents for Acute Concerns today for cold symptoms that started yesterday. Associated with chills, congestion, cough, chest soreness, ear pain, nausea, body aches. Has been taking Dayquil/Nyquil since yesterday. Used her nebulizer which did not help. Denies any fever, but has felt warm. Sick contact with her . Suppose to have surgery on Monday with Dr. Genao for neck. Patient Active Problem List Diagnosis Anxiety state Hyperlipidemia with target LDL less than 70 Allergic rhinitis Allergic conjunctivitis Chronic sinusitis GERD (gastroesophageal reflux disease) Asthma, mild persistent Stress incontinence, female History of cervical cancer MEDICATION USE AGREEMENT Atrophic vaginitis Bilateral primary osteoarthritis of knee Generalized osteoarthritis Type 2 diabetes mellitus with hemoglobin A1c goal of less than 7.0% (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) Bilateral hip pain Current Outpatient Medications Medication Sig Dispense Refill NASAL SALINE 0.65 % NA SOLN 2 squirts each nostril morning and night and every 2-4 hrs as needed for nasal dryness or congestion 1 0 ZADITOR 0.025 % OP SOLN one drop each eye every 8-12 hrs for eye itching 1 Bottle 5 TOPICORT 0.25 % EX CREA apply to rash twice a day x 14 days 15 g 1 ALBUTEROL SULFATE (2.5 MG/3ML) 0.083% IN NEBU One vial in nebulizer every 4 hours as needed for wheezing or cough or SOB 120 Vial 5 triamcinolone acetonide (ARISTOCORT) 0.1 % cream Apply topically to affected area 2 times a day as needed for Itching. To affected area. 15 g 1 Multiple Vitamins-Minerals (ONE-A-DAY WOMENS HEALTHY SKIN) TABS Take 1 Tab by mouth daily. Misc Natural Products (GLUCOSAMINE CHONDROITIN COMPLX) TABS Take 1 Tablet by mouth in the morning and 1 Tablet before bedtime. Calcium Carb-Cholecalciferol (CALCIUM + D3) 600-200 MG-UNIT per tablet Take 1 Tablet by mouth in the morning. Cyanocobalamin (VITAMIN B-12) 1000 MCG Tablet Take 1 Tablet by mouth in the morning. Coenzyme Q10 (CO Q 10) 100 MG CAPS Take 1 Cap by mouth daily. Cholecalciferol (VITAMIN D3) 5000 UNITS Tablet Take 1 Tablet by mouth in the morning. albuterol (PROAIR HFA) 108 (90 BASE) MCG/ACT inhaler Inhale 2 Puffs by mouth every 4 hours as needed for Cough, Shortness of Breath or Wheezing. 1 Inhaler 5 Azelastine HCl 0.1 % nasal spray USE 2 SPRAYS IN EACH NOSTRIL TWICE A DAY 90 mL 3 Cetirizine HCl 10 MG Capsule Take 1 Capsule by mouth in the morning. Bimatoprost 0.01 % Ophthalmic Solution Instill 1 Drop into both eyes at bedtime. Krill Oil 1000 MG Capsule Take 1 Capsule by mouth in the morning. Fluticasone Propionate 50 MCG/ACT Nasal Suspension (FLONASE) USE 2 SPRAYS IN EACH NOSTRIL TWICE A DAY 48 g 2 Famotidine 20 MG Oral Tablet Take 1 Tablet by mouth as needed for Heartburn. Acetaminophen 325 MG Oral Tablet (Tylenol) Take by mouth 2 Tablets every 6 hours as needed for Pain, Mild. 60 Tablet 0 Sennosides 8.6 MG Oral Tablet (Senokot) Take by mouth 1 Tablet in the morning AND 1 Tablet before bedtime. 90 Tablet 0 Premarin 0.625 MG/GM Vaginal Cream (Estrogens, Conjugated) Administer into the vagina at bedtime . As directed. 42.5 g 6 Atorvastatin Calcium 10 MG Oral Tablet (Lipitor) Take 1 Tablet by mouth in the morning. 90 Tablet 3 DULoxetine HCl 60 MG Oral Capsule Delayed Release Particles (Cymbalta) Take 1 Capsule by mouth in the morning. Do not cut, crush or chew. 90 Capsule 3 Zafirlukast 20 MG Oral Tablet (Accolate) TAKE 1 TABLET TWICE A DAY ON AN EMPTY STOMACH 180 Tablet 3 predniSONE 50 MG Oral Tablet (Deltasone) Take one tablet by mouth 13 hours prior to procedure. Takeone tablet by mouth one hour prior to procedure. 2 Tablet 0 Benadryl Allergy Extra Str 50 MG Oral Tablet (diphenhydrAMINE HCl) Take one tablet by mouth one hour prior to procedure. 1 Tablet 0 Fluticasone-Salmeterol 250-50 MCG/ACT Inhalation Aerosol Powder Breath Activated (Advair Diskus) Inhale 1 Puff by mouth in the morning and 1 Puff before bedtime. 180 Each 3 HYDROcodone-Acetaminophen 5-325 MG Oral Tablet Take 1 Tablet by mouth every 8 hours as needed for Pain, Severe. On going therapy 30 Tablet 0 No current facility-administered medications for this visit. Review of patient's allergies indicates: Allergen Reactions Asa [Salicylates] asthma Ivp Dye itching and rash Levofloxacin Hemihydrate itching Vegetable Enzyme itching Past Medical History: Diagnosis Date Abnormal Papanicolaou smear of cervix and cervical HPV 12/13/2002 Allergic rhinitis due to other allergen Asthma, severity to be determined Atrophic vaginitis Calcifying tendinitis of shoulder LEFT Cancer of cervix ([facility]) 1991 radiation Degeneration of lumbosacral intervertebral disc Dyslipidemia, goal LDL below 130 12/18/2009 Esophageal reflux Female stress incontinence 09/18/2012 Generalized osteoarthritis 01/10/2017 History of cervical cancer 04/20/2013 Impaired fasting glucose 10/29/07 Localized osteoarthrosis, lower leg bilateral knees Lymphedema of left lower extremity 09/19/2017 MEDICATION USE AGREEMENT 01/18/2014 Mixed dyslipidemia Nasal polyp Need for prophylactic hormone replacement therapy (postmenopausal) Osteoarthritis, knee 03/08/2012 Other lymphedema 2002 LLE Primary localized osteoarthrosis of pelvic region or thigh 07/16/2010 Primary localized osteoarthrosis, lower leg 06/17/2005 Primary osteoarthritis of both knees 09/12/2016 Spinal stenosis of lumbar region without neurogenic claudication 01/18/10 Tubular adenoma of colon Type 2 diabetes mellitus with hemoglobin A1c goal of less than 7.0% ([facility]) 03/22/2017 Past Surgical History: Procedure Laterality Date COLONOSCOPY, DIAGNOSTIC (RECTUM) 07/29/2016 adenomatous polyps, repeat 3 yrs/COLONOSCOPY FLEXIBLE PROXIMAL DIAGNOSTIC performed by Maureen Leavitt DO at [facility] COLONOSCOPY, DIAGNOSTIC (RECTUM) 11/08/2019 adenomatous polyp, diverticulosis, repeat 3 yrs/COLONOSCOPY FLEXIBLE PROXIMAL DIAGNOSTIC performed by Maureen Leavitt DO at [facility] COLONOSCOPY, DIAGNOSTIC (RECTUM) 04/06/2023 diverticulosis/biopsies show hyperplastic polyps/recall 5 years/COLONOSCOPY FLEXIBLE PROXIMAL DIAGNOSTIC performed by Maureen Leavitt DO at [facility] COLONOSCOPY, GI REFERRAL OP 05/14/2006 normal - Dr. Stone COLPOSCOPY VAGINA & OR CERVIX 07/2003 [facility] CYSTOSCOPY N/A 02/14/2022 CYSTOURETHROSCOPY performed by Beth Washington MD at [facility] INTRANASAL BIOPSY 2003 Nasal polypectomy LUMBAR SPINE FUSION W/BONE GRAFT 06/18/2014 lumbar decompression and medial facetectomy and foraminotomy L2,3 and L3-4. L4-5 and posterior fusion L3-4 and L4-5 - Dr. Genao - [facility] REMOVAL OF OVARY/OVIDUCT(S) 1991 bilateral REPAIR BLADDER DEFECT N/A 02/14/2022 VAGINAL SLING PROCEDURE FOR STRESS INCONTINENCE performed by Beth Washington MD at [facility] REPAIR OF NASAL SEPTUM 2003 Nasal Septum Repair SINUS SURGERY PROCEDURE [facility] [address] 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 Tobacco Use Smoking status: Never Smokeless tobacco: Never Tobacco comments: no passive smoke exposures Vaping Use Vaping status: Never Used Substance and Sexual Activity Alcohol use: Yes Comment: very rare Drug use: No Sexual activity: Yes Partners: Male Other Topics Concern Not on file Social History Narrative [employer] INFORMATION ENIVIRONMENTAL HISTORY: House: Two Story Type of Heating System: Oil and Hot water baseboard Air Conditioning: Yes Master bedroom and Living room Basement: Unfinished, Dampness and Water Problems Home have cockroaches: No Irritants in the home: None Patient's bedroom: FLOOR: second TYPE OF CITLALLI: Carpeting Beds: AMOUNT : 1 TYPE OF BEDS: Mattress and Box spring Pillows: AMOUNT: 2 TYPE OF PILLOWS: Synthetic (hypoallergenic, polyester) Bedroom contains: Minimal items Pets: 1 cat(s), 1 dog(s) and 3 stabled horses Lives on a farm: Yes Outdoor occupation; flag person for road crew Entered By: Je Alejandro MD 06/10/2005 Social Needs Financial Resource Strain: Not on file Food Insecurity: Not on file Transportation Needs: Not on file Social Connections: Not on file Housing Stability: Not on file Physical Exam Vitals: 01/16/25 0948 Temp: 98 °F (36.7 °C) Pulse: 86 Resp: 16 SpO2: 97% BP: 142/56 General: A&Ox3 and no distress Head: Normocephalic and atraumatic Eye: conjunctiva are pink and non-injected, sclera clear Ears: External ears normal, Canals clear, L TM nml / R TM fluid filled but intact no redness or drainage Nose: no mucosal erythema, no mucosal edema, no purulent discharge Oropharynx: no exudate, no erythema, lips, buccal mucosa, and tongue normal, and mucous membranes are moist Neck: supple, no adenopathy, thyroid normal size, non-tender, without nodularity Heart: regular rate & rhythm, no murmur, no gallops, S-1 normal, and S-2 normal Lungs: normal respiratory rate and rhythm, lungs clear to auscultation / harsh cough observed I have reviewed the following results: BMP results Recent Labs Units 08/07/24 1520 06/27/23 1448 05/16/23 1416 SODIUM - [facility] mmol/L 137 138 136 POTASSIUM - [facility] mmol/L 4.5 4.7 4.9 CHLORIDE - [facility] mmol/L 101 102 99 CO2 - [facility] mmol/L 25 26 26 CREATININE - [facility] mg/dL 0.7 0.7 0.7 BUN - [facility] mg/dL 15 14 14 Assessment and Plan Flu-like symptoms - likely flu / will start Tamiflu and send swab - prednisone for ear pain/congestion/sob / lungs are clear to auscultation do not suspect pneumoniaat this point in time - Tessalon perles for cough / okay to pay out of pocket - continue OTC Mucinex for congestion, rest, drink plenty of water, cool mist humidifier - OTC Tylenol/Ibuprofen as needed - predniSONE 20 MG Oral Tablet (Deltasone); Take 2 Tablets by mouth in the morning for 5 days. - Oseltamivir Phosphate 75 MG Oral Capsule (Tamiflu); Take 1 Capsule by mouth in the morning and 1 Capsule before bedtime. Do all this for 5 days. For 5 days.. - INFLUENZA A/B RSV SARS-COV2,PCR; Future - Benzonatate 100 MG Oral Capsule (Tessalon Perles); Take 1 Capsule by mouth 3 times a day as needed for Cough. Do not cut, crush, or chew. - INFLUENZA A/B RSV SARS-COV2,PCR Wrap-Up Follow Up: Return if symptoms worsen or fail to improve. Time: I spent a total of 10-19 minutes (exact time 18 mins) on the date of service in preparation, delivery, and documentation of the care provided to Chanda A Gaurav excluding any time spent in the performance of separately billed services. Cosigned by Ana Andre MD at 01/16/2025 8:57 PM EST documented in this encounter Nursing Notes * Zenaida Melendez LPN - 01/16/2025 9:48 AM EST Started yesterday. Congestion, cough, chest hurts. Feels tight. Runny nose, chills. documented in this encounter Plan of Treatment Upcoming Encounters Date Type Department Care Team (Late st Contact Info) Description 04/01/2025 3:10 PM EDT Office Visit Family Medicine [address] [place] [phone] Uyen [address] [place] [id number] 04/01/2025 3:50 PM EDT Laboratory Laboratory [address] [place] [phone] [place], Lab [address] [place] [address] Pending Results Name Type Priority Associated Diagnoses Date /Time INFLUENZA A/B RSV SARS-COV2,PCR Lab STAT Flu-like symptoms 01/16/2025 10:06 AM EST Scheduled Orders Name Type Priority Associated Diagnoses Orde r Schedule INFLUENZA A/B RSV SARS-COV2,PCR Lab STAT Flu-like symptoms Expected: 01/16/2025, Expires: 01/16/2026 Scheduled Procedures Name Priority Associated Diagnoses Date/Ti [...] 12/27/2022, 12/24/2021, Additional history exists COVID-19 Vaccine (2023- season) 2025 08/07/2024, 01/10/2024, 01/10/2024, Additional history exists HbA1c 02/04/2025 08/07/2024, 12/21, 06/27/2023, Additional history exists Diabetic Eye Exam 05/30/2025 12/02/2024, , 05/30/2024, Additional history exists GFR 08/07/2025 08/07/2024, 08/06/2023, 05/16/2023, Additional history exists Mammogram 11/06/2025 11/06/2024, [...] this encounter Medical Devices Implanted Type Area [address] Justice Device Identifier Shelf Expiration Date Model / Serial / Lot Desara Blue Tv Sling For Female Stress Urinary Incontinence Implanted:Qty: 1 on 02/14/2022 by Beth Washingotn MD at [facility] N/A: [employer] 10/04/2024 [id number] / / [id number] documented as of this encounter Visit Diagnoses Diagnosis Flu-like symptoms- Primary Influenza with other respiratory manifestations documented in this encounter Advance Directives * Full Code (Latest Code Status on File) Date Activated Date Inactivated Comments 02/14/2022 1:30 PM 02/14/2022 7:19 PM This order r eflects the patients wishes and were consensually agreed upon. Care Teams Engineering Specialist Relationship Specialty Start Date End Date Uyen Adams DO [address] [place] [address] [place] [id number] PCP - General Internal Medicine 09/19/17 documented as of this encounter
--- OUTSIDE RECORDS SUMMARY | 2025-03-07 06:45 | External Medical Summary ---
Author Name Unknown Address Unknown Organization K01:LABORATORY [address] [address] Laboratory Report Ordering Provider Test Date Status ANGELA GAY 01/16/2025 10:06:59 Final Observation Date Value Abnormality Reference (Units ) Status SARS Coronavirus 2 01/16/2025 10:06:59 Negative N egative Final No SARS-CoV2 Coronavirus RNA detected by PCR (amplified probe).
This automated test was developed and its performance characteristics determined by [facility]. It has not been cleared or approved by the U.S. Food and Drug Administration (FDA). FDA does not require this test to go thru premarket FDA review. This test is used for clinical purposes. It should not be regarded as investigational or for research. This laboratory is certified under the Clinical Laboratory Improvement Amendments (CLIA) as qualified to perform high complexity clinical laboratory testing.

This test is a nucleic acid amplification test (NAAT), a reverse transcriptase polymerase chain reaction (RT-PCR) test, or a Centers for Disease Control-acceptable equivalent. The test is performed in a high complexity Clinical Laboratory Improvement Amendments-(CLIA) certified laboratory. The test is acceptable for SARS-CoV-2 diagnosis, surveillance, and travel within the [place] and to most countries. Please check with local testing authorities about requirements before travel.

The validation of bronchial specimens, tracheal aspirates, and sputum for this assay was developed and performance characteristics determined by [facility]. The validation of alternate specimen types has not been cleared or approved by the U.S. Food and Drug Administration (FDA). It has been determined that such clearance or approval is not necessary. Influenza virus A RNA [Prese nce] in Specimen by TWAN with probe detection 01/16/2025 10:06:59 Positive Abnormal Negative Final Influenza A RNA detected by PCR (amplified probe). Test results reported to [facility]. Influenza virus B RNA [Prese nce] in Specimen by TWAN with probe detection 01/16/2025 10:06:59 Negative Negative Final No Influenza B RNA detected by PCR (amplified probe) Respiratory syncytial virus RNA [Identifier] in Specimen by TWAN with probe detection 01/16/2025 10:06:59 Negative Negative Final No Respiratory Syncytial Vir us RNA detected by PCR (amplified probe) Performing Location LABORATORY [address] [place]on Casas. [facility] [id number]
--- OUTSIDE RECORDS SUMMARY | 2025-03-07 06:45 | External Medical Summary | Summary of Care ---
Author Name Unknown Organization [facility] Address [address] [place] [address] Phone [phone] Care Team Providers Care Dish Technician Name Role Phone Uyen Adams Primary Care Provider Reason for Visit * Reason Comments Acute Encounter Details Date Type Department Care Team (Late st Contact Info) Description 01/16/2025 9:40 AM EST Office Visit Family Medicine [address] [phone] [address] [place] [place] [address] Flu-like symptoms* Allergies Active Allergy Reactions [...] pain 01/02/2024 Diabetes mellitus without complication 1 correction current use of therapeutic drug 2019 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 PURE HYPERCHOLESTEROLEM 06/17/200502/2007 LOC PRIM [id number] 06/17/200507/2008 Nasal polyp 06/10/2005 04/13/2012 CHR ALLRG [...] mRNA, LNP-s, No Pre serve, 2-Dose Series (NERI) 09/07/2021,02/04/2021,01/14/2021 COVID-19, LNP-s, No Preserve , Alexandr-sucrose, Ages 12+ (Pfizer) 06/28/2022 COVID-19, MRNA-LNP, PF, 30 M CG/0.3 mL, 12 YRS AND ABOVE, IM (PFIZER-Comirnaty) 08/07/2024,01/10/2024 H1N1 2009 Influenza, IM 03/06/2010 Pneumococcal Conjugate Vacci ne, 20-valent ([id number]) 06/24/2022 Pneumococcal Polysaccharide PPV23 (Pneumovax) 06/23/2021,06/26/2009,03/20/2009(Defe rred: [...] 3:10 PM EDT Office Visit Family Medicine [address] [place] [phone] [place] [id number] 04/01/2025 3:50 PM EDT Laboratory Laboratory [address] [place] [phone] [place], [address] [place] [id number] Pending Results Name Type Priority Associated Diagnoses [...] this encounter Medical Devices Implanted Type Area Desktop Administrator Device Identifier Shelf Expiration Date Model / Serial / Lot Desara Blue Tv Sling For Female Stress Urinary Incontinence Implanted:Qty: 1 on 02/14/2022 by Beth Washington MD at [place] [facility] [place]: [employer] 10/04/2024 [id number] / / [id number] documented as of this encounter Visit Diagnoses Diagnosis Flu-like symptoms- Primary Influenza with other respiratory manifestations documented in this encounter Advance Directives * Full Code (Latest Code Status on File) Date Activated Date Inactivated Comments 02/14/2022 1:30 PM 02/14/2022 7:19 PM This order r eflects the patients wishes and were consensually agreed upon. Care Teams Dish Technician Relationship Specialty Start Date End Date Uyen Adams DO [address] [place] [address] [place] [phone] PCP - General Internal Medicine 09/19/17 documented as of this encounter
[2025-03-07] MEDS ORDERED: PROPOFOL IV EMULSION 10 MG/ML 20 ML VIAL IV ONE (06:51)
[2025-03-07] MEDS ORDERED: ONDANSETRON INJ 2 MG/ML 2 ML VIAL ONE (06:51)
[2025-03-07] MEDS ORDERED: DEXAMETHASONE SOD INJ 4 MG/ML VIAL ONE (06:51)
[2025-03-07] MEDS ORDERED: ROCURONIUM BROMIDE 10 MG/ML 5 ML VIAL IV ONE (06:51)
[2025-03-07] MEDS ORDERED: GLYCOPYRROLATE 0.2 MG/ML VIAL ONE (06:51)
[2025-03-07] MEDS ORDERED: LIDOCAINE 2% 2 ML VIAL/AMP(20MG/ML) INFIL ONE (06:51)
[2025-03-07] MEDS ORDERED: NEOSTIGMINE METHYLSULFATE 1 MG/ML 10ML VIAL ONE (06:51)
[2025-03-07] MEDS ORDERED: fentaNYL citrate PF 100 MCG/2 ML VIAL ONE ×2 (06:52→08:27)
[2025-03-07] MEDS ORDERED: MIDAZOLAM HCL 1 MG/ML 2ML VIAL ONE (06:52)
[2025-03-07] MEDS ORDERED: FLUMAZENIL 0.1 MG/1 ML 10 ML VIAL IV PRN (07:20)
[2025-03-07] MEDS: LR 15ML/HR IV SCH (07:20)
[2025-03-07] MEDS ORDERED: HYDROmorphone INJ 1 MG/ML SYRINGE IV PRN ×2 (07:20→11:00)
[2025-03-07] MEDS ORDERED: ePHEDrine sulfate 50 MG/ML AMP IV PRN (07:20)
[2025-03-07] MEDS ORDERED: PROMETHAZINE HCL 6.25 MG in SODIUM CHLORIDE 0.9% 50 ML IV PRN (07:20)
[2025-03-07] MEDS ORDERED: ATROPINE SULFATE 0.1 MG/ML 10ML SYR IV PRN (07:20)
[2025-03-07] MEDS ORDERED: ONDANSETRON INJ 2 MG/ML 2 ML VIAL IV PRN ×2 (07:20→11:00)
[2025-03-07] MEDS ORDERED: NALOXONE HCL 0.4 MG/1 ML VIAL/CARP IV PRN ×2 (07:20→11:00)
[2025-03-07] MEDS: GABAPENTIN 300 MG CAP PO SCH (07:24)
[2025-03-07] MEDS: SCOPOLAMINE 1 MG/72 HR TDSY PATCH TD ONE (07:24)
[2025-03-07] MEDS: ACETAMINOPHEN 500 MG TAB PO SCH (07:24)
--- NOTE | 2025-03-07 07:38 | History & Physical Report ---
Date of Service March 07, 2025 History of Present Illness Chief Complaint: Neck and arm pain Primary Care Provider: Uyen Adams DO Allergies Allergy/AdvReac Type Severity Reaction Status Date / Time aspirin Allergy Severe shortness Verified 03/07/25 06:57 of breath NSAIDS (Non-Steroidal Allergy Severe severe Verified 03/07/25 06:57 Anti-Inflamma shortness of breath chlorhexidine Allergy Intermediate pruritus, Verified 03/07/25 06:57 rash iodine Allergy Intermediate Rash, Verified 03/07/25 06:57 Itching green tea Allergy Mild Rash Verified 03/07/25 06:57 Iodinated Contrast Media Allergy Mild Rash, Verified 03/07/25 06:57 Itching levofloxacin Allergy Mild Itchy Verified 03/07/25 06:57 (tolerates Cipro) lutein Allergy Mild Rash, Verified 03/07/25 06:57 Itching Home Medications Medication Instructions Recorded Confirmed Type albuterol sulfate 90 mcg/actuation 2 puff inhalation Q6H PRN 06/21/19 03/07/25 History aerosol inhaler Shortness Of Breath Or Wheezing azelastine 137 mcg (0.1 %) nasal 2 spray intranasal Q12H 06/21/19 03/07/25 History spray cetirizine 10 mg capsule (Zyrtec) 10 mg PO DAILY PRN Allergy Symptoms 06/21/19 03/07/25 History cholecalciferol (vitamin D3) 125 5,000 unit PO BID 06/21/19 03/07/25 History mcg (5,000 unit) tablet (Vitamin D3) fluticasone 250 mcg-salmeterol 50 1 inh inhalation BID 06/21/19 03/07/25 History mcg/dose blistr powdr for inhalation (Advair Diskus) ketotifen fumarate 0.025 % (0.035 1 drp ophthalmic (eye) Q12H PRN 06/21/19 03/07/25 History %) eye drops (Zaditor) Itching multivitamin 1 tab PO QAM 06/21/19 03/07/25 History zafirlukast 20 mg tablet (Accolate) 20 mg PO BID 06/21/19 03/07/25 History albuterol sulfate 0.63 mg/3 mL 0.63 mg inhalation Q4H PRN SHORT 11/03/21 03/07/25 History solution for nebulization OF BREATH bimatoprost 0.01 % eye drops 1 drp OPB HS 11/03/21 03/07/25 History (Lumigan) cyanocobalamin (vitamin B-12) 1,000 mcg PO QAM 11/03/21 03/07/25 History 1,000 mcg capsule duloxetine 60 mg capsule,delayed 60 mg PO QAM 11/03/21 03/07/25 History release famotidine 20 mg tablet (Pepcid) 20 mg PO DAILY PRN Heartburn 11/03/21 03/07/25 History fexofenadine 180 mg tablet 180 mg PO DAILY PRN Allergies 11/03/21 03/07/25 History guaifenesin 1,200 mg tablet, 1,200 mg PO Q12H PRN Cough 11/03/21 03/07/25 History extended release 12 hr (Mucinex) Gabbie Apple Cidar Vinegar 2 tab PO QAM 05/13/22 03/07/25 History atorvastatin 10 mg tablet 10 mg PO QPM 12/22/22 03/07/25 History acetaminophen 650 mg 650 mg PO Q8H PRN Pain 12/25/24 03/07/25 History tablet,extended release calcium 600 mg capsule 1,200 mg PO QPM 12/25/24 03/07/25 History coenzyme Q10 200 mg capsule (Co 200 mg PO QAM 12/25/24 03/07/25 History Q-10) conjugated estrogens 0.625 mg/gram 0.625 mg vaginal UD 12/25/24 03/07/25 History vaginal cream glucosamine sulf dipot 1 cap PO DAILY 12/25/24 03/07/25 History chlr,msm,chond 550 mg-C 30 mg-concepción 1 mg capsule (Glucosamine Chondroitin) hydrocodone 5 mg-acetaminophen 325 1 tab PO Q8H PRN prn 12/25/24 03/07/25 History mg tablet krill oil 500 mg capsule 500 mg PO DAILY 12/25/24 03/07/25 History lactobacillus combination no.4 3 3,000 mmu cells PO QAM 12/25/24 03/07/25 History billion cell capsule (Probiotic) levocetirizine 5 mg tablet (Xyzal) 5 mg PO DAILY PRN Allergies 12/25/24 03/07/25 History turmeric 400 mg capsule 400 mg PO QAM 12/25/24 03/07/25 History zinc 50 mg capsule 50 mg PO QPM 12/25/24 03/07/25 History Past Med/Surg History Problem List Encounter for pre-operative examination Postmenopausal atrophic vaginitis (Acute) GERD (gastroesophageal reflux disease) (Chronic) Controlled, stable per pt Dyslipidemia (Chronic) Asthma (Chronic) Rescue inhaler last used > 3 months ago Anxiety (Chronic) Chronic shoulder pain (Chronic) Chronic knee pain (Chronic) Medical History Dyslipidemia History of anesthesia reaction very cold after 2022 knee replacement, states oral temp was low Osteoarthritis Anxiety GERD (gastroesophageal reflux disease) controlled, stable per pt Asthma stable, uses inhaler prn - Typically uses more often with season changes, no recent use Spinal stenosis Osteopenia Diabetes Prediabetes/Borderline as per patient - no meds Stress bladder incontinence, female Hx of cervical cancer s/p surgery and radiation Glaucoma High cholesterol Environmental and seasonal allergies Surgical History History of lumbar surgery 2014: L3-L5 lumbar decompression and fusion, [facility], Dr Genao History of knee replacement procedure of left knee History of surgery Vaginal sling procedure 02/14/22 per PCP records Nausea and vomiting after administration of anesthetic agent History of repair of rotator cuff right + bicep tendon repair History of colonoscopy History of appendectomy H/O total hysterectomy History of tooth extraction History of nasal polypectomy Family History Aunt Asthma Mother Diabetes Alzheimer disease Father Prostate cancer Other No family history of adverse response to anesthesia Denies family history of Ovarian cancer Breast cancer Colorectal cancer Social History Smoking Status: Never smoker Second Hand Exposure: No; Do You Dip or Chew Tobacco: No; Tobacco Cessation Education Requested by Patient: No Hx Alcohol Use: No Hx Substance Use: No Preferred Language: Vietnamese Communication Ability: Effective Space Systems Operations Superintendent Required: No Beliefs That Will Affect Care: None Current Living Situation: Spouse current occupational status: retired Other Information That Helps Us Care for You: No Feels Safe at Home: Yes Safety Concerns: Feels Safe At This Time Assistive Devices: None
--- NOTE | 2025-03-07 07:38 | History & Physical Bridge Note ---
Date of Service March 07, 2025 History & Physical Bridge Note I have examined the patient, reviewed the History & Physical and in the interval since the performance of the History & Physical I have noted the following changes of clinical significance: no changes noted
--- NOTE | 2025-03-07 07:42 | History & Physical Report ---
Date of Service March 07, 2025 Assessment & Plan (1) Myelopathy concurrent with and due to spinal stenosis of cervical region: Plan: C5 corpectomy anterior cervical discectomy and fusion C4-C6 History of Present Illness Chief Complaint: Flocculence thanks pain neck and arm pain Primary Care Provider: Uyen Adams DO This is a 69-year-old female presents with persistent arm pain after failed course of nonoperative care is here for surgical invention. Allergies Allergy/AdvReac Type Severity Reaction Status Date / Time aspirin Allergy Severe shortness Verified 03/07/25 06:57 of breath NSAIDS (Non-Steroidal Allergy Severe severe Verified 03/07/25 06:57 Anti-Inflamma shortness of breath chlorhexidine Allergy Intermediate pruritus, Verified 03/07/25 06:57 rash iodine Allergy Intermediate Rash, Verified 03/07/25 06:57 Itching green tea Allergy Mild Rash Verified 03/07/25 06:57 Iodinated Contrast Media Allergy Mild Rash, Verified 03/07/25 06:57 Itching levofloxacin Allergy Mild Itchy Verified 03/07/25 06:57 (tolerates Cipro) lutein Allergy Mild Rash, Verified 03/07/25 06:57 Itching Home Medications Medication Instructions Recorded Confirmed Type albuterol sulfate 90 mcg/actuation 2 puff inhalation Q6H PRN 06/21/19 03/07/25 History aerosol inhaler Shortness Of Breath Or Wheezing azelastine 137 mcg (0.1 %) nasal 2 spray intranasal Q12H 06/21/19 03/07/25 History spray cetirizine 10 mg capsule (Zyrtec) 10 mg PO DAILY PRN Allergy Symptoms 06/21/19 03/07/25 History cholecalciferol (vitamin D3) 125 5,000 unit PO BID 06/21/19 03/07/25 History mcg (5,000 unit) tablet (Vitamin D3) fluticasone 250 mcg-salmeterol 50 1 inh inhalation BID 06/21/19 03/07/25 History mcg/dose blistr powdr for inhalation (Advair Diskus) ketotifen fumarate 0.025 % (0.035 1 drp ophthalmic (eye) Q12H PRN 06/21/19 03/07/25 History %) eye drops (Zaditor) Itching multivitamin 1 tab PO QAM 06/21/19 03/07/25 History zafirlukast 20 mg tablet (Accolate) 20 mg PO BID 06/21/19 03/07/25 History albuterol sulfate 0.63 mg/3 mL 0.63 mg inhalation Q4H PRN SHORT 11/03/21 03/07/25 History solution for nebulization OF BREATH bimatoprost 0.01 % eye drops 1 drp OPB HS 11/03/21 03/07/25 History (Lumigan) cyanocobalamin (vitamin B-12) 1,000 mcg PO QAM 11/03/21 03/07/25 History 1,000 mcg capsule duloxetine 60 mg capsule,delayed 60 mg PO QAM 11/03/21 03/07/25 History release famotidine 20 mg tablet (Pepcid) 20 mg PO DAILY PRN Heartburn 11/03/21 03/07/25 History fexofenadine 180 mg tablet 180 mg PO DAILY PRN Allergies 11/03/21 03/07/25 History guaifenesin 1,200 mg tablet, 1,200 mg PO Q12H PRN Cough 11/03/21 03/07/25 History extended release 12 hr (Mucinex) Gabbie Apple Cidar Vinegar 2 tab PO QAM 05/13/22 03/07/25 History atorvastatin 10 mg tablet 10 mg PO QPM 12/22/22 03/07/25 History acetaminophen 650 mg 650 mg PO Q8H PRN Pain 12/25/24 03/07/25 History tablet,extended release calcium 600 mg capsule 1,200 mg PO QPM 12/25/24 03/07/25 History coenzyme Q10 200 mg capsule (Co 200 mg PO QAM 12/25/24 03/07/25 History Q-10) conjugated estrogens 0.625 mg/gram 0.625 mg vaginal UD 12/25/24 03/07/25 History vaginal cream glucosamine sulf dipot 1 cap PO DAILY 12/25/24 03/07/25 History chlr,msm,chond 550 mg-C 30 mg-concepción 1 mg capsule (Glucosamine Chondroitin) hydrocodone 5 mg-acetaminophen 325 1 tab PO Q8H PRN prn 12/25/24 03/07/25 History mg tablet krill oil 500 mg capsule 500 mg PO DAILY 12/25/24 03/07/25 History lactobacillus combination no.4 3 3,000 mmu cells PO QAM 12/25/24 03/07/25 History billion cell capsule (Probiotic) levocetirizine 5 mg tablet (Xyzal) 5 mg PO DAILY PRN Allergies 12/25/24 03/07/25 History turmeric 400 mg capsule 400 mg PO QAM 12/25/24 03/07/25 History zinc 50 mg capsule 50 mg PO QPM 12/25/24 03/07/25 History Past Med/Surg History Problem List (Updated 03/07/25 @ 07:42 by Gerard Genao DO) Myelopathy concurrent with and due to spinal stenosis of cervical region Encounter for pre-operative examination Postmenopausal atrophic vaginitis (Acute) GERD (gastroesophageal reflux disease) (Chronic) Controlled, stable per pt Dyslipidemia (Chronic) Asthma (Chronic) Rescue inhaler last used > 3 months ago Anxiety (Chronic) Chronic shoulder pain (Chronic) Chronic knee pain (Chronic) Medical History (Updated 03/07/25 @ 07:42 by Gerard Genao DO) Dyslipidemia History of anesthesia reaction very cold after 2022 knee replacement, states oral temp was low Osteoarthritis Anxiety GERD (gastroesophageal reflux disease) controlled, stable per pt Asthma stable, uses inhaler prn - Typically uses more often with season changes, no recent use Spinal stenosis Osteopenia Diabetes Prediabetes/Borderline as per patient - no meds Stress bladder incontinence, female Hx of cervical cancer s/p surgery and radiation Glaucoma High cholesterol Environmental and seasonal allergies Surgical History History of lumbar surgery 2013: L3-L5 lumbar decompression and fusion, [facility], Dr Genao History of knee replacement procedure of left knee History of surgery Vaginal sling procedure 02/14/22 per PCP records Nausea and vomiting after administration of anesthetic agent History of repair of rotator cuff right + bicep tendon repair History of colonoscopy History of appendectomy H/O total hysterectomy History of tooth extraction History of nasal polypectomy Family History Aunt Asthma Mother Diabetes Alzheimer disease Father Prostate cancer Other No family history of adverse response to anesthesia Denies family history of Ovarian cancer Breast cancer Colorectal cancer Social History Smoking Status: Never smoker Second Hand Exposure: No; Do You Dip or Chew Tobacco: No; Tobacco Cessation Education Requested by Patient: No Hx Alcohol Use: No Hx Substance Use: No Preferred Language: Sierra Leonean Communication Ability: Effective Blood Coordinator Required: No Beliefs That Will Affect Care: None Current Living Situation: Spouse current occupational status: retired Other Information That Helps Us Care for You: No Feels Safe at Home: Yes Safety Concerns: Feels Safe At This Time Assistive Devices: None Physical Exam Physical Exam: Patient is alert and oriented Heart regular rhythm Lungs clear
[2025-03-07] MEDS: ceFAZolin 2000MG 2,000 MG/15 ML SYR IV SCH (07:54)
[2025-03-07] MEDS ORDERED: PHENYLEPHRINE 100MCG/ML 5ML SYR ONE (08:01)
[2025-03-07] MEDS: ceFAZolin 330 MG/ML 1 GM VIAL ONE (08:19)
[2025-03-07] MEDS: FLOSEAL HEMOSTATIC MATRIX 10ML TOP ONE (08:20)
[2025-03-07] MEDS: SURGICEL ABSORB HEMOSTAT 2IN X 14IN TOP ONE (08:48)
[2025-03-07] MEDS ORDERED: SUGAMMADEX SODIUM 200 MG/2 ML VIAL IV ONE (09:13)
--- NOTE | 2025-03-07 09:17 | Operative Report ---
Post Operative Report Pre & Post Diagnosis Operation Date: 03/07/25 07:45 Pre-Op Diagnosis: Cervical Spinal Cord Compression, Cervical Myelopathy Post-Op Diagnosis: Cervical Spinal Cord Compression, Cervical Myelopathy I identified the patient and participated in the time-out.: Yes Procedure Operation Date: 03/07/25 07:45 Actual Procedures #1 anterior cervical corpectomy C5 with bilateral foraminotomies. #2 anterior cervical arthrodesis C4-C6. #3 placement of Spira 21 mm cage C4-C6. #4 placement locally harvested morselized autograft combined with os design in the interbody cage. #5 application of K2 and plate and screws from C4-C6. Surgeon Gerard Genao, DO Residential Treatment Specialist Rajat Sams Estimated Blood Loss 10 Findings Consistent with Post-Op Diagnosis Specimens None Indications This is a 69-year-old female well-known to me the presents manage diagnosis of failing course of nonoperative care is here for surgical invention. Description of Procedure Patient was met with identified informed consent obtained. Patient was then taken to the operative suite underwent intubation placed in a supine position the Titus table to [place] head kiln operator. All bony prominences well-padded eyes inspected to ensure no external pressure placed upon them. This point the anterior cervical spine was prepped and draped in normal sterile fashion. The assistance of fluoroscopy identified the C5 vertebral body and a transverse incision was placed along the right anterior aspect of the cervical spine lines region. Blunt dissection with the assistance of bipolar electrocautery is then performed down to and exposing the anterior cervical spine from C4 to see 6. Self-retaining retractors placed. Then formed a complete discectomy of C4-C5 out to the ankle vertebral joints bilaterally followed by C5-C6. [place] distracting pins were placed in C4 and C6. I distract across the C5 vertebral body. A complete corpectomy of C5 was then performed including removal of all posterior fibers longitudinal ligament bilateral foraminotomies performed. Endplates burred to subcortical bleeding bone and a 21 mm spiral cage filled with locally harvested morselized autograft and os design bone graft tapped in position. Distracting apparatus was removed all anterior osteophytes burred to smooth cortical surface and a K2 M plate and screws applied with the assistance of fluoroscopy. The incision was then copiously irrigated explored to ensure no damage to surrounding structures or remaining bleeding. 10 round KULWANT drain inserted. The incision was then closed with 2 Vicryl the fascia and a 4 Monocryl for final skin closure. Steri-Strips sterile dressing placed. Patient waken taken to PACU in stable condition. Please note spinal cord monitoring was utilized at the procedure no changes noted. Rajat roman was present at the entire surgery and while the patient positioning complex portions of the surgery and final skin closure. Im ordering 10 grams of Collagen Powder (HCPCS A6010 Primary Dressing) and 10 bordered super absorbent (HCPCS A6196 Secondary Dressing) to treat an incision wound that was caused by a spine procedure. The incision is approximately 2 cm(W) x 4 cm(L) down to the spinal column and epidural space 2 cm (D) in size and is a full thickness wound showing no signs of infection. Collagen comes in 1 gram packets so 10 packets were ordered. Given the size of the wound, with moderate exudate I chose to order a 10 day supply. The patient will be provided instructions for proper application of the collagen wound kit. The patient will be asked to apply the collagen powder daily and then cover it with sterile dressings dispensed. Collagen was selected as I expect the collagen to attract monocytes and fibroblasts, act as a sacrificial substrate for MMPs, and ultimately proved a matrix for tissue and vessel growth. The collagen will act as a primary dressing in this scenario. It is medically necessary for proper healing of these wounds to improve bioavailability and contact with each wound surface, this is also to help prevent infection of wounds and promote healing ultimately leading to a better healing outcome and limit the risk of infection. I attest to the content of the Intraoperative Record and any orders documented therein. Any exceptions are noted below.
--- NOTE | 2025-03-07 09:58 | Fluoroscopy Report ---
FL cervical 2-3V CLINICAL HISTORY: C5 CORPECTOMY AND C4-C6 ACDF COMPARISON STUDY: None FLUOROSCOPY TIME: 13 seconds FLUOROSCOPY IMAGES: 3 EXPOSURE DOSE: 1 mGy FINDINGS: Fluoroscopy was provided for cervical metallic fusion. IMPRESSION: Intraoperative fluoroscopy. ACT 112: Negative or not required by law. Electronically signed by: Jamie Marinelli M.D. 03/07/2025 9:56 AM
[2025-03-07] MEDS: fentaNYL citrate PF 100 MCG/2 ML VIAL IV PRN (10:11)
[2025-03-07] MEDS ORDERED: RACEPINEPHRINE 2.25% NEBU SOLN 0.5 ML VIAL INH PRN (11:00)
[2025-03-07] MEDS ORDERED: LORazepam 0.5 MG TAB PO PRN (11:00)
[2025-03-07] MEDS ORDERED: FEXOFENADINE HCL 180 MG TAB PO PRN (11:00)
[2025-03-07] MEDS ORDERED: SOD PHOSPHATE/SOD BIPHOSPHATE ENEMA 132 ML BTL PR PRN (11:00)
[2025-03-07] MEDS ORDERED: PROMETHAZINE 12.5 MG/50.5 ML BAG IV PRN (11:00)
[2025-03-07] MEDS ORDERED: MAGNESIUM HYDROXIDE SUSP 30 ML UDC PO PRN (11:00)
[2025-03-07] MEDS ORDERED: HYDROmorphone INJ 0.5 MG/0.5 ML SYR IV PRN (11:00)
[2025-03-07] MEDS ORDERED: METOCLOPRAMIDE HCL INJ 5 MG/ML 2 ML VIAL IV PRN (11:00)
[2025-03-07] MEDS ORDERED: DO NOT ADMINISTER PNEUMOCOCCAL VACCINE PRN (11:00)
[2025-03-07] MEDS ORDERED: bisacodyL 10 MG SUPP PR PRN (11:00)
[2025-03-07] MEDS ORDERED: FAMOTIDINE 20 MG TAB PO PRN ×2 (11:00)
[2025-03-07] MEDS ORDERED: ONDANSETRON 4 MG OD TAB PO PRN (11:00)
[2025-03-07] MEDS ORDERED: LORazepam 2 MG/1 ML VIAL IV PRN (11:00)
[2025-03-07] MEDS ORDERED: ALUMINUM/MAGNESIUM SUSP 30 ML UDC PO PRN (11:00)
[2025-03-07] MEDS ORDERED: guaiFENesin 600 MG TABCR PO PRN (11:00)
[2025-03-07] MEDS ORDERED: NON-FORMULARY MEDICATION (Albuterol Sulfate 0.63 mg/3 mL Solution For Nebulization) INH PRN (11:00)
[2025-03-07] MEDS ORDERED: dexAMETHasone 8 MG in SYRINGE 0 ML IV PRN (11:00)
[2025-03-07] MEDS ORDERED: traMADol HCL 50 MG TABLET PO PRN (11:00)
[2025-03-07] MEDS ORDERED: diphenhydrAMINE Capsule 25 MG CAP PO PRN (11:00)
[2025-03-07] MEDS ORDERED: NON-FORMULARY MEDICATION (Levocetirizine [Xyzal] 5 mg Tablet) PO PRN (11:00)
[2025-03-07] MEDS ORDERED: ALBUTEROL HFA 8 GM INHALER INH PRN (11:00)
[2025-03-07] MEDS ORDERED: DO NOT ADMINISTER FLU VACCINE PRN (11:00)
[2025-03-07] MEDS ORDERED: CETIRIZINE HCL 10 MG TABLET PO PRN (11:15)
[2025-03-07] MEDS: oxyCODONE HCL IR 5 MG TAB (IMMEDIATE RELEASE) PO PRN (11:16)
[2025-03-07] MEDS: LR 60ML/HR IV SCH (11:18)
[2025-03-07] MEDS: SCOPOLAMINE 1 MG/72 HR TDSY PATCH TD SCH (11:19)
[2025-03-07] MEDS: CHECK SCOPOLAMINE PATCH PLACEMENT SCH (11:19)
--- NOTE | 2025-03-07 11:28 | Anesthesiology Progress Note ---
Date of Service March 07, 2025 Anesthesia Post Procedure Vital Signs Vital Signs: Temp Pulse Resp BP Pulse Ox Pulse Ox O2 Del Method 03/07/25 11:22 95 03/07/25 11:02 36.7 C 16 146/65 H 94 Room Air 03/07/25 10:52 64 18 133/59 L 94 Room Air 03/07/25 10:40 63 16 138/68 93 Room Air 03/07/25 10:25 36.5 C 60 13 149/66 H 95 Room Air 03/07/25 10:15 64 15 138/57 L 98 Room Air 03/07/25 10:05 62 16 146/69 H 98 Room Air 03/07/25 09:55 63 12 166/69 H 95 Room Air 03/07/25 09:45 64 13 174/67 H 100 Oxymask 03/07/25 09:35 64 19 166/63 H 100 Oxymask 03/07/25 09:27 36.2 C L 66 18 182/70 H 100 Oxymask O2 Del Method O2 Flow Rate 03/07/25 11:22 Room Air 03/07/25 11:02 03/07/25 10:52 0 03/07/25 10:40 0 03/07/25 10:25 0 03/07/25 10:15 0 03/07/25 10:05 0 03/07/25 09:55 0 03/07/25 09:45 4 03/07/25 09:35 8 03/07/25 09:27 8 Pain Intensity Neck: Pain Intensity: 6 Transfer of Care Handoff Completed per policy Notes Mental Status: alert / awake / arousable Patient Amnestic to Procedure: Yes Nausea / Vomiting: adequately controlled Pain: adequately controlled Airway Patency, RR, SpO2: stable & adequate BP & HR: stable & adequate Hydration State: stable & adequate Anesthetic Complications: no major complications apparent
[2025-03-07] MEDS: dexAMETHasone 6 MG in SYRINGE 0 ML IV SCH (11:56)
[2025-03-07] MEDS: FLUTICASONE/VILANTEROL 200/25MCG 14 PUFFS/INHALER INH SCH (11:56)
[2025-03-07] MEDS: AZELASTINE HCL 0.1% NASAL 200 SPRAYS/27,400 MCG BTL SCH (13:05)
[2025-03-07] MEDS: ceFAZolin 1000MG 1,000 MG/7.5 ML SYR IV SCH (16:52)
[2025-03-07] MEDS: ACETAMINOPHEN 1,000 MG/100 ML VIAL IV PRN (19:24)
[2025-03-07] MEDS: DOCUSATE SODIUM/SENNA 50/8.6MG TAB PO SCH (20:12)
[2025-03-07] MEDS: hydrOXYzine HCl 25 MG TAB PO PRN (20:14)
[2025-03-07] MEDS: CALCIUM CARBONATE 500 MG CHEWABLE TAB PO SCH (20:15)
[2025-03-07] MEDS: ZINC SULFATE 220 MG CAPSULE PO SCH (20:16)
[2025-03-07] MEDS: ATORVASTATIN 10 MG TAB PO SCH (20:16)
[2025-03-07] MEDS: CHOLECALCIFEROL 125 MCG (5,000 UNITS) TAB PO SCH (20:16)
[2025-03-07] MEDS: BIMATOPROST 0.01% OP SOLN 2.5 ML BTL OPB SCH (20:16)
[2025-03-08] MEDS: POLYETHYLENE (MIRALAX) 17 GM PACK PO SCH (05:46)
[2025-03-08 07:09] VITALS: BP 133/69; TEMP 98.2
[2025-03-08 07:31] VITALS: RESP 18
[2025-03-08] MEDS: COUGH DROP (SUGAR FREE) LOZ 24 LOZ/1 BOX BUCCAL ONE (07:55)
[2025-03-08] MEDS: ACETAMINOPHEN 500 MG TAB PO PRN (07:56)
[2025-03-08] MEDS: ADVANCED PROBIOTIC 625 MG CAPSULE PO SCH (07:56)
[2025-03-08] MEDS: CYANOCOBALAMIN (B-12) 500 MCG TABLET PO SCH (07:56)
[2025-03-08] MEDS: DULoxetine HCL 60 MG CAP PO SCH (07:56)
[2025-03-08] MEDS ORDERED: NON-FORMULARY MEDICATION (Coenzyme Q10 [Co Q-10] 200 mg Capsule) PO SCH (09:00)
[2025-03-08 09:51] VITALS: O2SAT 94
--- NOTE | 2025-03-08 11:09 | Discharge Summary ---
Date of Service March 08, 2025 Admission HPI Per Admitting Provider This is a 69-year-old female presents with persistent arm pain after failed course of nonoperative care is here for surgical invention. Principal Diagnosis Cervical spinal stenosis with myeloradiculopathy Discharge Data Allergies Allergy/AdvReac Type Severity Reaction Status Date / Time aspirin Allergy Severe shortness Verified 03/07/25 06:57 of breath NSAIDS (Non-Steroidal Allergy Severe severe Verified 03/07/25 06:57 Anti-Inflamma shortness of breath chlorhexidine Allergy Intermediate pruritus, Verified 03/07/25 06:57 rash iodine Allergy Intermediate Rash, Verified 03/07/25 06:57 Itching green tea Allergy Mild Rash Verified 03/07/25 06:57 Iodinated Contrast Media Allergy Mild Rash, Verified 03/07/25 06:57 Itching levofloxacin Allergy Mild Itchy Verified 03/07/25 06:57 (tolerates Cipro) lutein Allergy Mild Rash, Verified 03/07/25 06:57 Itching Procedures Performed Operation Date: 03/07/25 07:45 Actual Procedures p C5 Corpectomy, C4-C6 Anterior Cervical Discectomy and Fusion, Spinal Cord Monitoring(Not Applicable) - Gerard Genao DO Ordered Studies 03/07/25 07:45 FL cervical 2-3V Routine Hospital Course (1) Myelopathy concurrent with and due to spinal stenosis of cervical region: Patient underwent anterior cervical corpectomy and fusion tolerated as well as taken orthopedic for postoperative. Postoperatively she felt her arm symptoms were improving. Swallowing well. No hoarseness. Strength improving. KULWANT drain decreasing and bubbly. Separately discharge home. Discharge orders and instructions found in chart for further review. Total Time Total Time Spent Total Time Spent (In Minutes): 20 minutes Discharge Plan Discharge Items Patient Disposition: Home - Self-Care Reason For Visit: Cervical Spinal Cord Compression, Cervical Myelopa Discharge Diagnosis: Cervical spinal stenosis with myeloradiculopathy Activity: As commented below Non-emergency contact: Primary Care Provider Call non-emergency contact if: you have any medication questions Follow-up/Referrals: Uyen Adams DO [Primary Care Provider] - Diet: Regular Addtl Attending Provider Instructions: ACTIVITY RECOMMENDATIONS: SELF CARE INSTRUCTIONS AFTER CERVICAL FUSIONS 1. No smoking. Smoking drastically decreases the chance of a solid fusion. 2. No bending, lifting more than 5 pounds, or twisting (roll like a log when turning in bed). 3. You may shower 3 days after surgery. Thoroughly dry wound. Do not soak in the tub. 4. Cervical collar: Must be worn at all times including sleeping. You may remove the brace only to bath, eat and if you are sitting in a recliner. 5. Please walk as much as you can for exercise. Gradually increase the distance that you walk as your endurance increases. 6. You may return to previous diet. SPECIAL CARE INSTRUCTIONS: VERY IMPORTANT TO READ AND REVIEW A. Do not take any anti-inflammatory medications (i.e. Indocin, Advil, Aspirin, Naprosyn, Aleve, Motrin, etc.) as these may inhibit the chance of a solid fusion. Tylenol is okay to take. B. Your surgical incision has been closed with a cosmetic suture under the skin that will dissolve in about 6 weeks. In 14 days, you can use a pair of clean scissors and cut the suture that is left outside of the skin at the ends of your incision. C. Complications are uncommon, but please contact us if you have any signs or symptoms of: 1. wound infection (fever higher than 102.5 degrees F, redness, separation of wound, drainage, or increasing pain from the incision) 2. blood clots in legs (pain, swelling, redness and warmth in legs) 3. urinary tract infection (fever higher than 102.5 degrees, burning upon urination or increased frequency of urination) 4. nerve problems (inability to walk on your toes or heels, numbness, loss of bowel or bladder control) 5. any other symptoms that concern you. D. Please call the office at if you have any concerns or questions about your operation or recovery. MANAGING PAIN AFTER SPINAL SURGERY 1. Narcotic medication is intended for short-term use and will be provided for surgical pain. Surgical pain usually lasts for a period of 4-6 weeks. Narcotic medication includes Percocet, Vicodin, Darvocet, Tylenol #3 or Lortab. 2. Longer-term pain is more appropriately treated with non-narcotic medication such as Tylenol ES. 3. Muscle spasm is not appropriately treated with narcotics. Muscle relaxers such as Soma, Flexeril or Skelaxin can be used along with Tylenol ES. 4. Remember that we all live with some "aches and pains". This is not unusual or uncommon after an injury or as we get older. 5. We will provide appropriate medication within the normal guidelines of their prescribed use. We will also be very cautious and aware of potential abuse and extended duration of patients' medication needs. 6. Please allow 2-3 days to process refills. Prescriptions will not be mailed but must be picked up at the office. FOLLOW UP VISIT: Keep your scheduled follow-up appointment. Any questions, please call the office at . Pending Studies at Discharge: No Stand-Alone Forms: My [facility] [employer], Smoking Cessation Medications and DC Order Prescriptions: New tramadol 50 mg tablet 50 mg PO Q6H PRN (Reason: pain, moderate) Qty: 30 0RF oxycodone 5 mg tablet 5 mg PO Q6H PRN (Reason: pain) Qty: 20 0RF Continued atorvastatin 10 mg tablet 10 mg PO QPM multivitamin Tablet 1 tab PO QAM fluticasone propion-salmeterol [Advair Diskus] 250-50 mcg/dose blister with device 1 inh inhalation BID ketotifen fumarate [Zaditor] 0.025 % (0.035 %) Drops 1 drp OPHTHALMIC (EYE) Q12H PRN (Reason: Itching) zafirlukast [Accolate] 20 mg Tablet 20 mg PO BID azelastine 137 mcg (0.1 %) Aerosol,[place] 2 spray INTRANASAL Q12H albuterol sulfate 90 mcg/actuation Hfa Aerosol Inhaler 2 puff INHALATION Q6H PRN (Reason: Shortness Of Breath Or Wheezing) cholecalciferol (vitamin D3) [Vitamin D3] 5,000 unit Tablet 5,000 unit PO BID Zyrtec 10 mg Capsule 10 mg PO DAILY PRN (Reason: Allergy Symptoms) albuterol sulfate 0.63 mg/3 mL Solution For Nebulization 0.63 mg INHALATION Q4H PRN (Reason: SHORT OF BREATH) fexofenadine 180 mg Tablet 180 mg PO DAILY PRN (Reason: Allergies) famotidine [Pepcid] 20 mg Tablet 20 mg PO DAILY PRN (Reason: Heartburn) duloxetine 60 mg Capsule,Delayed Release(Dr/Ec) 60 mg PO QAM guaifenesin [Mucinex] 1,200 mg Tablet Extended Release 12hr 1,200 mg PO Q12H PRN (Reason: Cough) Lumigan 0.01 % Drops 1 drp OPB HS cyanocobalamin (vitamin B-12) 1,000 mcg Capsule 1,000 mcg PO QAM Gabbie Apple Cidar Vinegar 2 tab PO QAM conjugated estrogens 0.625 mg/gram cream 0.625 mg vaginal UD Patient Comments: MONDAY/MONDAY acetaminophen [Tylenol Arthritis] 650 mg Tablet Extended Release 650 mg PO Q8H PRN (Reason: Pain) coenzyme Q10 [Co Q-10] 200 mg Capsule 200 mg PO QAM Glucosamine Chondroitin 550-30-1 mg Capsule 1 cap PO DAILY hydrocodone-acetaminophen 5-325 mg tablet 1 tab PO Q8H PRN (Reason: prn) levocetirizine [Xyzal] 5 mg Tablet 5 mg PO DAILY PRN (Reason: Allergies) zinc 50 mg Capsule 50 mg PO QPM krill oil 500 mg Capsule 500 mg PO DAILY turmeric 400 mg Capsule 400 mg PO QAM Probiotic 3 billion cell Capsule 3,000 mmu cells PO QAM Rx Instructions: administer with a meal calcium 600 mg Capsule 1,200 mg PO QPM Discharge Orders: Discharge Order (Routine); Ordered 03/08/25 Ordered By: Gerard Genao Admission Data Admit Date/Time: 03/07/25 09:20 Attending Provider: Gerard Genao Admit Provider: Gerard Genao Primary Care Provider: Uyen Adams
[2025-03-08 11:45] VITALS: PULSE 64
== END 2025-03-08 12:49 | disposition home or self-care (01) | DRG 472 ==
LOC: ASU 06:36 → 3W 09:20